=== PATIENT | male | born 1970 | race African-American/Black ===

== ENCOUNTER 2021-05-17 03:48 | Observation (INO) | payer OTHER ==
[2021-05-17 04:27] LABS: Basophils # (A) 0.1 k/uL (0-0.2); Basophils % (A) 1 %; Eosinophils # (A) 0.6 k/uL (0-0.7); Eosinophils % (A) 9 %; HCT 41.6 % (39.0-53.0); Lymphocytes # (A) 1.8 k/uL (1.0-4.8); Lymphocytes % (A) 26 %; MCH 28.2 pg (25.0-35.0); MCHC 31.4 g/dL (31.0-37.0); MCV 89.9 fL (80.0-100.0); Mean Platelet Volume 6.9; Monocytes # (A) 0.5 k/uL (0-1.0); Monocytes % (A) 8 %; Neutrophils # (A) 3.9 k/uL (1.3-7.7); Neutrophils % (A) 55 %; Platelet Count 232 k/uL (150-450); RBC 4.63 m/uL (4.30-5.90); RDW 13.2 % (11.5-15.5); WBC 7.1 k/uL (3.8-10.6)
--- NOTE | 2021-05-17 04:33 | ED ---
Chest Pain HPI - General Chief Complaint: Chest Pain Stated Complaint: Chest pain Time Seen by Provider: 05/17/21 03:50 Source: patient, EMS, RN notes reviewed, old records reviewed Mode of arrival: EMS Limitations: no limitations - History of Present Illness Initial Comments: This is a 50-year-old male presents today for evaluation. Patient comes in for evaluation of significant chest pain. Patient has no prior history of similar chest pain of this magnitude. Patient states he has history of high blood pressure and diabetes. He has had a stress test before regarding 5 years ago. Patient is coming from [facility] for alcohol rehab. Patient states pain started tonight has been progressively worsening. No diaphoresis and no current shortness of breath. No recent cough congestion or travel history MD Complaint: chest pain -: hour(s) Onset: during rest Pain Location: substernal, left chest Pain Radiation: LUE Severity: mild Severity scale (1-10): 3 Quality: heaviness Consistency: constant Improves With: nothing Worsens With: nothing Anginal Symptoms: dyspnea Other Symptoms: palpitations Treatments Prior to Arrival: none - Related Data Allergies Allergy/AdvReac Type Severity Reaction Status Date / Time No Known Allergies Allergy Verified 05/17/21 04:12 Review of Systems ROS Statement: Those systems with pertinent positive or pertinent negative responses have been documented in the HPI. ROS Other: All systems not noted in ROS Statement are negative. Past Medical History Past Medical History: Diabetes Mellitus History of Any Multi-Drug Resistant Organisms: None Reported Past Surgical History: No Surgical Hx Reported Past Psychological History: No Psychological Hx Reported Smoking Status: Former smoker Past Alcohol Use History: Abuse Past Drug Use History: Cocaine, Marijuana General Exam Limitations: no limitations General appearance: alert, in no apparent distress Head exam: Present: atraumatic, normocephalic, normal inspection Eye exam: Present: normal appearance, PERRL, EOMI. Absent: scleral icterus, conjunctival injection, periorbital swelling ENT exam: Present: normal exam, mucous membranes moist Neck exam: Present: normal inspection. Absent: tenderness, meningismus, lymphadenopathy Respiratory exam: Present: normal lung sounds bilaterally. Absent: respiratory distress, wheezes, rales, rhonchi, stridor Cardiovascular Exam: Present: regular rate, normal rhythm, normal heart sounds. Absent: systolic murmur, diastolic murmur, rubs, gallop, clicks GI/Abdominal exam: Present: soft, normal bowel sounds. Absent: distended, tenderness, guarding, rebound, rigid Extremities exam: Present: normal inspection, full ROM, normal capillary refill. Absent: tenderness, pedal edema, joint swelling, calf tenderness Back exam: Present: normal inspection Neurological exam: Present: alert, oriented X3, CN II-XII intact Psychiatric exam: Present: normal affect, normal mood Skin exam: Present: warm, dry, intact, normal color. Absent: rash Course Vital Signs 05/17/21 03:52 Temperature 97.4 F L Pulse Rate 84 Respiratory 18 Rate Blood Pressure 107/79 O2 Sat by Pulse 99 Oximetry - Reevaluation(s) Reevaluation #1: 05/17/21 04:42 Medical record is reviewed Reevaluation #2: 05/17/21 04:42 Patient has persistent chest pain here in the ER Reevaluation #3: 05/17/21 04:42 Patient informed results and questions answered - Consultations Consultation #1: Spoke with Dr. Dang who agrees to admit this patient Chest Pain MDM - MDM 50 male to the ER for evaluation patient presents today for evaluation regards to chest pain. Does have significant cardiac risk and will be admitted for cardiac observation Critical Care Time Critical Care Time: Yes Total Critical Care Time: 31 Disposition Clinical Impression: Chest pain Disposition: ADMITTED IP TO THIS [facility] Condition: Undetermined Instructions (If sedation given, give patient instructions): Chest Pain (ED) Is patient prescribed a controlled substance at d/c from ED?: No Referrals: Nonstaff,Physician [Primary Care Provider] - 1-2 days
[2021-05-17 04:35] LABS: Partial Thromboplastin Time 27.4 sec (22.0-30.0); Prothrombin Time 10.4 sec (9.0-12.0)
--- NOTE | 2021-05-17 04:37 | XR ---
EXAMINATION TYPE: XR chest 2V DATE OF EXAM: 05/17/2021 COMPARISON: NONE HISTORY: Wrist pain TECHNIQUE: 2 views FINDINGS: Heart and mediastinum are normal. Lungs are clear. Diaphragm is normal. Bony thorax appears normal. There are chest leads. IMPRESSION: Normal chest.
[2021-05-17] MEDS ORDERED: HEPARIN SODIUM 1,000 UN/ML (10ML VL) IV ONE (04:40)
[2021-05-17] MEDS ORDERED: NITROGLYCERIN SL TABS 0.4 MG TAB SUBLINGUAL PRN (04:40)
[2021-05-17] MEDS ORDERED: ASPIRIN 81 MG PO STA (04:40)
[2021-05-17] MEDS ORDERED: MORPHINE SULFATE 4 MG/ML SYRINGE IV PRN (04:40)
[2021-05-17] MEDS ORDERED: HEPARIN SOD,PORK IN 0.45% NACL 25,000 UNIT in 0.45% NACL 1 250ML.BAG IV SCH (04:45)
[2021-05-17 04:46] LABS: ALT 19 U/L (4-49); AST 25 U/L (17-59); African American GFR (CKD) >90 (>60 ml/min/1.73 sqM); Albumin 3.7 g/dL (3.5-5.0); Alkaline Phosphatase 92 U/L (38-126); Anion Gap 4 mmol/L; Blood Urea Nitrogen 11 mg/dL (9-20); Calcium 9.5 mg/dL (8.4-10.2); Carbon Dioxide 29 mmol/L (22-30); Chloride 103 mmol/L (98-107); Creatine Kinase 121 U/L (55-170); Glucose 111 mg/dL (74-99); Lipase 41 U/L (23-300); Magnesium 1.9 mg/dL (1.6-2.3); Non-African American GFR(CKD) >90 (>60 ml/min/1.73 sqM); Potassium 4.1 mmol/L (3.5-5.1); Sodium 136 mmol/L (137-145); Total Bilirubin <0.1 mg/dL (0.2-1.3)
[2021-05-17 04:58] LABS: Creatine Kinase MB 1.4 ng/mL (0.0-2.4); Troponin I <0.012 ng/mL (0.000-0.034)
[2021-05-17 06:04] LABS: Glucose,Whole Blood 41 mg/dL (75-99)
[2021-05-17] MEDS ORDERED: ATORVASTATIN 80 MG TAB PO SCH (09:00)
[2021-05-17 09:48] LABS: Glucose,Whole Blood 210 mg/dL (75-99)
--- NOTE | 2021-05-17 09:50 | P.CRDCN ---
History of Present Illness History of present illness: HISTORY OF PRESENTING ILLNESS This is a pleasant 50-year-old -[place] male past medical history significant for poorly controlled diabetes mellitus according to the patient hemoglobin A1c of 12, history of alcohol and illicit drug use has been clean for 3 weeks currently attending rehabilitation at [facility]. He is scheduled to follow-up with a bowling ball grader and marker for the first time next month but has yet to see him. He denies prior history of coronary artery disease and has no significant family history of premature coronary artery disease. We have been asked to see in consultation for chest pain. He states he woke up around 4 AM this morning with a sharp pain in the left precordial region that was radiating around his left anterior chest and into the left shoulder and back of his left arm. The pain was sharp in nature and lasted for about 10 minutes prior to calling EMS. Upon arrival they gave sublingual nitroglycerin which did relieve his discomfort. He had some associated shortness of breath and felt mildly lightheaded. Currently he is sitting up in bed in no acute distress and has had no further symptoms of chest discomfort since arriving in the emergency department. He states the reason his primary care doctor referred him to a bowling ball grader and marker as he has been having these symptoms of chest discomfort more frequently over the previous few months. DIAGNOSTICS EKG reveals sinus mechanism heart rate of [address] or T wave abno rmalities noted. Chest xray negative for an acute cardiopulmonary process. Laboratory reviewed, ABC unremarkable, sodium 136, potassium 4.1, creatinine 0.63, magnesium 1.9, troponin negative 1 and NT proBNP 18. Current cardiac medications include aspirin 81 mg daily and simvastatin 20 mg daily. REVIEW OF SYSTEMS At the time of my exam: CONSTITUTIONAL: Denies fever or chills. CARDIOVASCULAR: Denies chest pain, shortness of breath, orthopnea, PND or palpitations. RESPIRATORY: Denies cough. GASTROINTESTINAL: Denies abdominal pain, diarrhea, constipation, nausea or vomiting. MUSCULOSKELETAL: Denies myalgias. NEUROLOGIC: Denies numbness, tingling, headacbe or weakness. ENDOCRINE: Denies fatigue, weight change, polydipsia or polyurina. GENITOURINARY: Denies burning, hematuria or urgency with micturation. HEMATOLOGIC: Denies history of anemia or bleeding. PHYSICAL EXAMINATION Blood pressure 104/72 heart rate 84 afebrile and maintaining oxygen saturation on room air. CONSTITUTIONAL: No apparent distress. HEENT: Head is normocephalic. Pupils are equal, round. Sclerae anicteric. Mucous membranes of the mouth are moist. No JVD. No carotid bruit. CHEST EXAMINATION: Lungs are clear to auscultation. No chest wall tenderness is noted on palpation or with deep breathing. HEART EXAMINATION: Regular rate and rhythm. S1, S2 heard. No murmurs, gallops or rub. ABDOMEN: Soft, nontender. Positive bowel sounds. EXTREMITIES: 2+ peripheral pulses, no lower extremity edema and no calf tendern ess. NEUROLOGIC EXAMINATION: Patient is awake, alert and oriented x3. ASSESSMENT Chest pain Diabetes mellitus Dyslipidemia History of alcohol, illicit drug and tobacco dependence PLAN Continue to obtain serial cardiac enzymes to rule out an acute event. If second set of troponins is negative we will proceed with a stress echocardiogram to assess for stress-induced cardiac ischemia. Obtain 2-D echocardiogram and Doppler study to assess cardiac structure and function. Check lipid panel. Adjust statin accordingly. Thank you kindly for this consultation. Nurse Practitioner note has been reviewed, I agree with a documented findings and plan of care. Patient was seen and examined. Past Medical History Past Medical History: Diabetes Mellitus History of Any Multi-Drug Resistant Organisms: None Reported Past Surgical History: No Surgical Hx Reported Past Psychological History: No Psychological Hx Reported Smoking Status: Former smoker Past Alcohol Use History: Abuse Past Drug Use History: Cocaine, Marijuana Medications and Allergies Home Medications Medication Instructions Recorded Confirmed Type Aspirin 81 mg PO DAILY 05/17/21 05/17/21 History Cymbalta (Unknown Dose) 1 cap PO DAILY 05/17/21 05/17/21 History INSULIN LISPRO (HumaLOG) [humaLOG] See Protocol SQ ACHS 05/17/21 05/17/21 History Insulin Glargine,Hum.rec.anlog 30 unit SQ DAILY 05/17/21 05/17/21 History [Lantus Solostar] Insulin Glargine,Hum.rec.anlog 40 unit SQ HS 05/17/21 05/17/21 History [Lantus Solostar] Simvastatin [Zocor] 20 mg PO HS 05/17/21 05/17/21 History metFORMIN HCL [Glucophage] 1,000 mg PO BID 05/17/21 05/17/21 History Allergies Allergy/AdvReac Type Severity Reaction Status Date / Time No Known Allergies Allergy Verified 05/17/21 06:22 Physical Exam Vitals: Vital Signs Temp Pulse Resp BP Pulse Ox 05/17/21 05:47 84 17 104/72 99 05/17/21 04:43 79 17 110/77 100 05/17/21 03:52 97.4 F L 84 18 107/79 99 Intake and Output 05/16/21 05/17/21 05/17/21 22:59 06:59 14:59 Other: Weight 68.946 kg Results 05/17/21 04:13 05/17/21 04:13 Cardiac Enzymes 05/17/21 05/17/21 Range/Units 04:13 04:13 AST 25 (17-59) U/L CK-MB (CK-2) 1.4 (0.0-2.4) ng/mL Troponin I <0.012 (0.000-0.034) ng/mL Coagulation 05/17/21 Range/Units 04:13 PT 10.4 (9.0-12.0) sec APTT 27.4 (22.0-30.0) sec CBC 05/17/21 Range/Units 04:13 WBC 7.1 (3.8-10.6) k/uL RBC 4.63 (4.30-5.90) m/uL Hgb 13.0 (13.0-17.5) gm/dL Hct 41.6 (39.0-53.0) % Plt Count 232 (150-450) k/uL Comprehensive Metabolic Panel 05/17/21 Range/Units 04:13 Sodium 136 L (137-145) mmol/L Potassium 4.1 (3.5-5.1) mmol/L Chloride 103 (98-107) mmol/L Carbon Dioxide 29 (22-30) mmol/L BUN 11 (9-20) mg/dL Creatinine 0.63 L (0.66-1.25) mg/dL Glucose 111 H (74-99) mg/dL Calcium 9.5 (8.4-10.2) mg/dL AST 25 (17-59) U/L ALT 19 (4-49) U/L Alkaline Phosphatase 92 (38-126) U/L Total Protein 6.0 L (6.3-8.2) g/dL Albumin 3.7 (3.5-5.0) g/dL Current Medications Generic Name Dose Route Start Last Admin Trade Name Manuelq PRN Reason Stop Dose Admin Aspirin 325 mg 05/18/21 09:00 Aspirin 325 Mg Tab PO DAILY [facility] Atorvastatin Calcium 80 mg 05/17/21 09:00 Atorvastatin 80 Mg Tab PO DAILY [facility] Sodium Chloride 1,000 mls @ 100 mls/hr 05/17/21 04:45 Saline 0.9% IV .Q10H [facility] Heparin Sodium/Sodium Chloride 250 mls @ 8.274 mls/hr 05/17/21 04:45 05/17/21 05:00 25,000 unit/ Sodium Chloride IV 12 units/kg/hr .Q24H RENA 8.274 mls/hr Administration Protocol 12 UNITS/KG/HR Morphine Sulfate 4 mg 05/17/21 04:40 Morphine Sulfate 4 Mg/Ml Syringe IV Q4HR PRN Chest Pain Nitroglycerin 0.4 mg 05/17/21 04:40 Nitroglycerin Sl Tabs 0.4 Mg Tab SUBLINGUAL Q5M PRN Chest Pain Intake and Output 05/16/21 05/17/21 05/17/21 22:59 06:59 14:59 Other: Weight 68.946 kg 05/17/21 04:13 05/17/21 04:13
[2021-05-17 10:45] VITALS: RESP 18
[2021-05-17 11:58] LABS: Glucose,Whole Blood 226 mg/dL (75-99)
[2021-05-17] MEDS: SODIUM CHLORIDE 0.9% 1,000 ML IV SCH ×2 (12:20→16:57)
--- NOTE | 2021-05-17 12:48 | ECHOF ---
Referral Reason:cp MEASUREMENTS -------- HEIGHT: 177.8 cm WEIGHT: 68.9 kg BP: RVIDd: 2.6 cm (< 3.3) IVSd: 1.1 cm (0.6 - 1.1) LVIDd: 3.6 cm (3.9 - 5.3) LVPWd: 1.0 cm (0.6 - 1.1) IVSs: 1.6 cm LVIDs: 2.3 cm LVPWs: 1.7 cm LAESV Index (A-L): 13.53 ml/m Ao Diam: 3.0 cm (2.0 - 3.7) AV Cusp: 2.0 cm (1.5 - 2.6) LA Diam: 2.7 cm (2.7 - 3.8) MV EXCURSION: 18.221 mm (> 18.000) MV EF SLOPE: 169 mm/s (70 - 150) EPSS: 0.4 cm MV E True: 0.72 m/s MV DecT: 149 ms MV A True: 0.94 m/s MV E/A Ratio: 0.77 RAP: 5.00 mmHg RVSP: 16.30 mmHg FINDINGS -------- This was a technically good study. The left ventricular size is normal. Left ventricular wall thickness is normal. Overall left vent ricular systolic function is normal with, an EF between 55 - 60 %. The diastolic filling pattern is normal for the age of the patient 8.66. The right ventricle is normal in size. The left atrial size is normal. Normal LA size by volume 22+/-6 ml/m2. The right atrial size is normal. Aortic valve is trileaflet and is mildly thickened. The mitral valve is normal. The mitral valve leaflets are mildly thickened. There is trace mitral regurgitation. The tricuspid valve appears structurally normal. Trace tricuspid regurgitation present. Right nikki tricular systolic pressure is normal at < 35 mmHg. There is no pulmonic regurgitation present. The aortic root size is normal. Normal inferior vena cava with normal inspiratory collapse consistent with estimated right atrial pre ssure of 5 mmHg. There is no pericardial effusion. CONCLUSIONS -------- 1. The left ventricular size is normal. 2. Left ventricular wall thickness is normal. 3. Overall left ventricular systolic function is normal with, an EF between 55 - 60 %. 4. The diastolic filling pattern is normal for the age of the patient 8.66 5. Aortic valve is trileaflet and is mildly thickened. 6. The mitral valve leaflets are mildly thickened. 7. There is trace mitral regurgitation. 8. Trace tricuspid regurgitation present. 9. There is no pericardial effusion. [employer]EN'[employer] GOLF COACH: Ernestina Rubin RDCS
[2021-05-17] MEDS ORDERED: HYDROcodone/APAP 5-325MG 1 EACH TAB PO PRN (13:31)
--- NOTE | 2021-05-17 14:27 | ECHOS ---
STRESS ECHOCARDIOGRAM LUMASON: Vial INDICATIONS: Chest pain. MEDICATIONS: BASELINE HEART RATE: 83 BASELINE BLOOD PRESSURE: 120/62 MAXIMUM HEART RATE: 152 MAXIMUM BLOOD PRESSURE: 171/82 85% MPHR: 144 100% MPHR: 169 METS: 11.1 MAXIMUM STAGE REACHED: 3 TOTAL EXERCISE TIME: 9:31 CLINICAL INFORMATION: Baseline EKG shows sinus rhythm, normal axis, normal intervals. Patient exercised on Jose Francisco protocol for a total of 9.5 minutes achieving 11 METS, 90% of predicted maximal heart rate without chest pain or diagnostic ST-segment depression. Baseline echo shows normal left ventricular size, wall motion and systolic function. Postexercise there is normal hyperdynamic response of all segments of myocardium noted. CONCLUSIONS: 1. Good exercise tolerance. 2. Negative stress test by EKG criteria. 3. Negative stress echo. MMODL / IJN: [id number] /
[2021-05-17 15:32] VITALS: BP 130/82; PULSE 93; TEMP 98.2
[2021-05-17 17:51] LABS: Glucose,Whole Blood 164 mg/dL (75-99)
--- NOTE | 2021-05-17 18:13 | HP ---
HISTORY AND PHYSICAL A 50-year-old white male for poorly controlled diabetes mellitus with a hemoglobin A1c of 12. Alcohol and illicit drug use for the past 3 weeks. Came in from [place] with dyslipidemia, scheduled to see a recreation establishment manager but has not seen one yet. He came in with sharp pain is left precordial region. He is admitted to rule out myocardial infarction and cardiology consult. EKG shows sinus rhythm, no ST-T changes. Chest x-ray is negative. BNP is 18. Troponin is negative. Sodium is 136, potassium 4.1. REVIEW OF SYSTEMS: Fourteen-point review of systems otherwise negative. PHYSICAL EXAMINATION: VITAL SIGNS: Blood pressure is 104/72, heart rate 70s-80s. Maintaining oxygen on room air. CONSTITUTIONAL: No acute distress. HEENT: Normocephalic, atraumatic. LUNGS: Clear. HEART: S1, S2. ABDOMEN: Soft. EXTREMITIES: No cyanosis, clubbing, edema. NEUROLOGIC: Alert and orient x3. ASSESSMENT: 1. Atypical chest pain. 2. Diabetes mellitus, uncontrolled. 3. Dyslipidemia. 4. History of alcohol and drug abuse. Cardiac enzymes to rule out a myocardial infarction. Stress echo to rule out ischemia. Start him on a statin. Possible discharge home once he is cleared from Cardiology standpoint. Check D-dimer. MMODL / IJN: [id number] /
[2021-05-17] MEDS ORDERED: INSULIN DETEMIR (LEVEMIR) 100 UNIT/ML SYR SQ SCH (21:00)
[2021-05-17] MEDS ORDERED: ATORVASTATIN 10 MG TAB PO SCH (21:00)
[2021-05-18 01:17] LABS: Chol/HDL Ratio 1.89
[2021-05-18] MEDS ORDERED: ASPIRIN 325 MG TAB PO SCH (09:00)
[2021-05-18] MEDS ORDERED: ASPIRIN 81 MG PO SCH ×2 (09:00)
[2021-05-18] MEDS ORDERED: INSULIN DETEMIR (LEVEMIR) 100 UNIT/ML SYR SQ SCH (09:00)
[2021-05-18] MEDS ORDERED: DULoxetine HCL 60 MG CAPSULE.DR PO SCH (09:00)
== END 2021-05-17 18:48 | disposition home or self-care (01) ==
LOC: EC 03:48 → 6NMEDSUR 04:40
PROVIDERS: ADMIT Family Medicine; ATTEND Family Medicine
DX: R07.89 Other chest pain (principal); E11.65 Type 2 diabetes mellitus with hyperglycemia; R00.2 Palpitations; R06.02 Shortness of breath; R42 Dizziness and giddiness; E78.5 Hyperlipidemia, unspecified; F10.10 Alcohol abuse, uncomplicated; F19.10 Other psychoactive substance abuse, uncomplicated; Z79.82 Long term (current) use of aspirin; Z79.4 Long term (current) use of insulin; Z87.891 Personal history of nicotine dependence; Z86.79 Personal history of other diseases of the circulatory system
CPT/HCPCS: 96374; 99291; 36415; 93005; 93306; 93351; 83880; 80061; 80053; 82550; 82553; 83690; 83735; 84484; 85025; 85610; 85730; 71046; G0378; J1644 ×2

== ENCOUNTER 2022-06-04 09:49 | Observation (INO) | payer OTHER ==
[2022-06-04 10:10] LABS: Glucose,Whole Blood 328 mg/dL (70-110)
[2022-06-04] MEDS ORDERED: SODIUM CHLORIDE 0.9% 1,000 ML IV STA (10:18)
--- NOTE | 2022-06-04 10:19 | ED ---
General Adult HPI - General Chief complaint: Chest Pain Stated complaint: chest pain Time Seen by Provider: 06/04/22 09:55 Source: EMS Mode of arrival: EMS Limitations: no limitations - History of Present Illness Initial comments: 51-year-old male with past medical history of diabetes, cocaine use presents to the emergency room from [place]. States that he last used on Friday and was admitted to [place] yesterday. Began having chest pain earlier this morning. Described as substernal without radiation. Patient sent to the emergency departments and was given aspirin and nitro by EMS. Reports that his pain which was 8 out of 10 and is now completely gone after the nitro. He denies previous history of cardiac disease. No fevers, chills or cough. No shortness of breath. Patient is a diabetic. He did take his long-acting insulin this morning but did not accommodate for his meal. Glucose for EMS was 491 No alleviating, precipitating or modifying factors - Related Data Home Medications Medication Instructions Recorded Confirmed Aspirin 81 mg PO DAILY 05/17/21 06/04/22 INSULIN LISPRO (HumaLOG) [humaLOG] 8 units SQ AC-TID 05/17/21 06/04/22 Insulin Glargine,Hum.rec.anlog 30 unit SQ DAILY 05/17/21 06/04/22 [Lantus Solostar Pen] Insulin Glargine,Hum.rec.anlog 40 unit SQ HS 05/17/21 06/04/22 [Lantus Solostar Pen] ALPRAZolam [Xanax] 0.5 mg PO TID 06/04/22 06/04/22 ARIPiprazole [Abilify] 15 mg PO DAILY 06/04/22 06/04/22 Ammonium Lactate Cream [Lac-Hydrin 1 applic TOPICAL DAILY 06/04/22 06/04/22 12% Cream] Citalopram Hydrobromide [CeleXA] 10 mg PO DAILY 06/04/22 06/04/22 Empagliflozin [Jardiance] 10 mg PO DAILY 06/04/22 06/04/22 Gabapentin 600 mg PO TID 06/04/22 06/04/22 HYDROcodone/APAP 7.5-325MG [[place] 1 tab PO DAILY 06/04/22 06/04/22 7.5-325] Isosorbide Mononitrate ER [Imdur] 30 mg PO DAILY 06/04/22 06/04/22 Lidocaine 4% Patch 1 patch TOPICAL DAILY 06/04/22 06/04/22 amLODIPine [Norvasc] 10 mg PO DAILY 06/04/22 06/04/22 sitaGLIPtin [Januvia] 50 mg PO DAILY 06/04/22 06/04/22 traZODone HCL 300 mg PO HS 06/04/22 06/04/22 Allergies Allergy/AdvReac Type Severity Reaction Status Date / Time No Known Allergies Allergy Verified 06/04/22 11:19 Review of Systems ROS Statement: Those systems with pertinent positive or pertinent negative responses have been documented in the HPI. ROS Other: All systems not noted in ROS Statement are negative. Past Medical History Past Medical History: Diabetes Mellitus History of Any Multi-Drug Resistant Organisms: None Reported Past Surgical History: No Surgical Hx Reported Past Psychological History: No Psychological Hx Reported Smoking Status: Current every day smoker Past Alcohol Use History: Abuse Past Drug Use History: Cocaine, Marijuana General Exam Limitations: no limitations General appearance: alert, in no apparent distress Head exam: Present: atraumatic, normocephalic, normal inspection Eye exam: Present: normal appearance, PERRL, EOMI. Absent: scleral icterus, conjunctival injection, periorbital swelling ENT exam: Present: normal exam, mucous membranes moist Neck exam: Present: normal inspection. Absent: tenderness, meningismus, lymphadenopathy Respiratory exam: Present: normal lung sounds bilaterally. Absent: respiratory distress, wheezes, rales, rhonchi, stridor Cardiovascular Exam: Present: regular rate, normal rhythm, normal heart sounds. Absent: systolic murmur, diastolic murmur, rubs, gallop, clicks GI/Abdominal exam: Present: soft, normal bowel sounds. Absent: distended, tenderness, guarding, rebound, rigid Extremities exam: Present: normal inspection, full ROM, normal capillary refill. Absent: tenderness, pedal edema, joint swelling, calf tenderness Back exam: Present: normal inspection Neurological exam: Present: alert, oriented X3, CN II-XII intact Psychiatric exam: Present: normal affect, normal mood Skin exam: Present: warm, dry, intact, normal color. Absent: rash Course Vital Signs 06/04/22 06/04/22 06/04/22 09:52 13:19 15:00 Temperature 98 F 98 F Pulse Rate 73 80 Pulse Rate [ 77 Pulse Oximetery ] Respiratory 16 16 16 Rate Blood Pressure 131/75 130/68 Blood Pressure 135/68 [Right Arm] O2 Sat by Pulse 100 98 98 Oximetry EKG Findings - EKG Comments: EKG Findings:: EKG demonstrates sinus rhythm with a rate of 74. VT interval 154. QRS 100. QTC 46. No acute ST segment elevations or depressions. Inverted T- wave in aVL Medical Decision Making - Medical Decision Making Upon arrival patient was placed into room 14. Thorough history and physical exam was performed. 12-lead EKG is obtained which demonstrates J-point elevation. Patient is pain-free at this time. Labs conducted which demonstrate sugar of 333. Troponin is negative. Chest x-ray demonstrated no acute process. Recommended admission in order trend his troponins which the patient did agree to. Spoke with Dr. Palafox who will admit the patient - Lab Data Result diagrams: 06/05/22 03:58 06/05/22 03:58 Lab Results 06/04/22 06/04/22 06/04/22 Range/Units 10:04 10:21 10:21 WBC 4.6 (3.8-10.6) k/uL RBC 4.75 (4.30-5.90) m/uL Hgb 13.0 (13.0-17.5) gm/dL Hct 41.9 (39.0-53.0) % MCV 88.3 (80.0-100.0) fL MCH 27.4 (25.0-35.0) pg MCHC 31.1 (31.0-37.0) g/dL RDW 13.3 (11.5-15.5) % Plt Count 179 (150-450) k/uL MPV 7.7 Neutrophils % 56 % Lymphocytes % 19 % Monocytes % 10 % Eosinophils % 12 % Basophils % 1 % Neutrophils # 2.6 (1.3-7.7) k/uL Lymphocytes # 0.9 L (1.0-4.8) k/uL Monocytes # 0.4 (0-1.0) k/uL Eosinophils # 0.5 (0-0.7) k/uL Basophils # 0.0 (0-0.2) k/uL PT 10.3 (9.0-12.0) sec INR 0.9 (<1.2) APTT 27.5 (22.0-30.0) sec Sodium (137-145) mmol/L Potassium (3.5-5.1) mmol/L Chloride (98-107) mmol/L Carbon Dioxide (22-30) mmol/L Anion Gap mmol/L BUN (9-20) mg/dL Creatinine (0.66-1.25) mg/dL Est GFR (CKD-EPI)AfAm (>60 ml/min/1.73 sqM) Est GFR (CKD-EPI)NonAf (>60 ml/min/1.73 sqM) Glucose (74-99) mg/dL POC Glucose (mg/dL) 328 H (70-110) mg/dL POC Glu Environmental Law Professor ID Alej[address] Glu mg/dL Hemoglobin A1c (0.0-6.0) % Calcium (8.4-10.2) mg/dL Magnesium (1.6-2.3) mg/dL Total Bilirubin (0.2-1.3) mg/dL AST (17-59) U/L ALT (4-49) U/L Alkaline Phosphatase (38-126) U/L Troponin I (0.000-0.034) ng/mL Total Protein (6.3-8.2) g/dL Albumin (3.5-5.0) g/dL Lipase (23-300) U/L Urine Color Urine Appearance (Clear) Urine pH (5.0-8.0) Ur Specific [place] (1.001-1.035) Urine Protein (Negative) Urine Glucose (UA) (Negative) Urine Ketones (Negative) Urine Blood (Negative) Urine Nitrite (Negative) Urine Bilirubin (Negative) Urine Urobilinogen (<2.0) mg/dL Ur Leukocyte Esterase (Negative) 06/04/22 06/04/22 06/04/22 Range/Units 10:21 10:21 10:21 WBC (3.8-10.6) k/uL RBC (4.30-5.90) m/uL Hgb (13.0-17.5) gm/dL Hct (39.0-53.0) % MCV (80.0-100.0) fL MCH (25.0-35.0) pg MCHC (31.0-37.0) g/dL RDW (11.5-15.5) % Plt Count (150-450) k/uL MPV Neutrophils % % Lymphocytes % % Monocytes % % Eosinophils % % Basophils % % Neutrophils # (1.3-7.7) k/uL Lymphocytes # (1.0-4.8) k/uL Monocytes # (0-1.0) k/uL Eosinophils # (0-0.7) k/uL Basophils # (0-0.2) k/uL PT (9.0-12.0) sec INR (<1.2) APTT (22.0-30.0) sec Sodium 134 L (137-145) mmol/L Potassium 4.7 (3.5-5.1) mmol/L Chloride 101 (98-107) mmol/L Carbon Dioxide 27 (22-30) mmol/L Anion Gap 6 mmol/L BUN 13 (9-20) mg/dL Creatinine 0.76 (0.66-1.25) mg/dL Est GFR (CKD-EPI)AfAm >90 (>60 ml/min/1.73 sqM) Est GFR (CKD-EPI)NonAf >90 (>60 ml/min/1.73 sqM) Glucose 333 H (74-99) mg/dL POC Glucose (mg/dL) (70-110) mg/dL POC Glu Environmental Law Professor ID [address] Glu mg/dL Hemoglobin A1c (0.0-6.0) % Calcium 8.7 (8.4-10.2) mg/dL Magnesium 2.0 (1.6-2.3) mg/dL Total Bilirubin 0.1 L (0.2-1.3) mg/dL AST 28 (17-59) U/L ALT 26 (4-49) U/L Alkaline Phosphatase 138 H (38-126) U/L Troponin I <0.012 (0.000-0.034) ng/mL Total Protein 5.8 L (6.3-8.2) g/dL Albumin 3.5 (3.5-5.0) g/dL Lipase 124 (23-300) U/L Urine Color Light Yellow Urine Appearance Clear (Clear) Urine pH 6.5 (5.0-8.0) Ur Specific [place] 1.030 (1.001-1.035) Urine Protein Negative (Negative) Urine Glucose (UA) 4+ H (Negative) Urine Ketones Negative (Negative) Urine Blood Negative (Negative) Urine Nitrite Negative (Negative) Urine Bilirubin Negative (Negative) Urine Urobilinogen <2.0 (<2.0) mg/dL Ur Leukocyte Esterase Negative (Negative) 06/04/22 Range/Units 10:21 WBC (3.8-10.6) k/uL RBC (4.30-5.90) m/uL Hgb (13.0-17.5) gm/dL Hct (39.0-53.0) % MCV (80.0-100.0) fL MCH (25.0-35.0) pg MCHC (31.0-37.0) g/dL RDW (11.5-15.5) % Plt Count (150-450) k/uL MPV Neutrophils % % Lymphocytes % % Monocytes % % Eosinophils % % Basophils % % Neutrophils # (1.3-7.7) k/uL Lymphocytes # (1.0-4.8) k/uL Monocytes # (0-1.0) k/uL Eosinophils # (0-0.7) k/uL Basophils # (0-0.2) k/uL PT (9.0-12.0) sec INR (<1.2) APTT (22.0-30.0) sec Sodium (137-145) mmol/L Potassium (3.5-5.1) mmol/L Chloride (98-107) mmol/L Carbon Dioxide (22-30) mmol/L Anion Gap mmol/L BUN (9-20) mg/dL Creatinine (0.66-1.25) mg/dL Est GFR (CKD-EPI)AfAm (>60 ml/min/1.73 sqM) Est GFR (CKD-EPI)NonAf (>60 ml/min/1.73 sqM) Glucose (74-99) mg/dL POC Glucose (mg/dL) (70-110) mg/dL POC Glu Environmental Law Professor ID [address] Glu mg/dL 214 Hemoglobin A1c 9.1 H (0.0-6.0) % Calcium (8.4-10.2) mg/dL Magnesium (1.6-2.3) mg/dL Total Bilirubin (0.2-1.3) mg/dL AST (17-59) U/L ALT (4-49) U/L Alkaline Phosphatase (38-126) U/L Troponin I (0.000-0.034) ng/mL Total Protein (6.3-8.2) g/dL Albumin (3.5-5.0) g/dL Lipase (23-300) U/L Urine Color Urine Appearance (Clear) Urine pH (5.0-8.0) Ur Specific [place] (1.001-1.035) Urine Protein (Negative) Urine Glucose (UA) (Negative) Urine Ketones (Negative) Urine Blood (Negative) Urine Nitrite (Negative) Urine Bilirubin (Negative) Urine Urobilinogen (<2.0) mg/dL Ur Leukocyte Esterase (Negative) Disposition Clinical Impression: Chest pain, Cocaine abuse Disposition: ADMITTED IP TO THIS [facility] Condition: Stable Is patient prescribed a controlled substance at d/c from ED?: No Time of Disposition: 11:37 Decision to Admit Reason: Admit from EC Decision Date: 06/04/22 Decision Time: 11:37
[2022-06-04 10:40] LABS: Basophils % (A) 1 %; Eosinophils # (A) 0.5 k/uL (0-0.7); Eosinophils % (A) 12 %; HCT 41.9 % (39.0-53.0); Lymphocytes # (A) 0.9 k/uL (1.0-4.8); Lymphocytes % (A) 19 %; MCH 27.4 pg (25.0-35.0); MCHC 31.1 g/dL (31.0-37.0); MCV 88.3 fL (80.0-100.0); Mean Platelet Volume 7.7; Monocytes # (A) 0.4 k/uL (0-1.0); Monocytes % (A) 10 %; Neutrophils # (A) 2.6 k/uL (1.3-7.7); Neutrophils % (A) 56 %; Platelet Count 179 k/uL (150-450); RBC 4.75 m/uL (4.30-5.90); RDW 13.3 % (11.5-15.5); WBC 4.6 k/uL (3.8-10.6)
[2022-06-04 10:41] LABS: Appearance,Urine Clear (Clear); Bilirubin,Urine Negative (Negative); Blood,Urine Negative (Negative); Color,Urine Light Yellow; Glucose,Urine (UA) 4+ (Negative); Ketones,Urine Negative (Negative); Leukocyte Esterase,Urine Negative (Negative); Nitrite,Urine Negative (Negative); PH, Urine 6.5 (5.0-8.0); Protein,Urine Negative (Negative); Urobilinogen,Urine <2.0 mg/dL (<2.0)
--- NOTE | 2022-06-04 10:48 | XR ---
EXAMINATION TYPE: XR chest 2V DATE OF EXAM: 06/04/2022 COMPARISON: 05/17/21 HISTORY: Shortness of breath TECHNIQUE: Frontal and lateral views of the chest are obtained. FINDINGS: Scattered senescent parenchymal changes noted. Hyperinflation compatible with COPD. No evidence for infiltrate. No evidence for atelectasis. Heart size is stable. Mediastinal structures are stable and grossly unremarkable. No evidence for hilar prominence. Degenerative changes dorsal spine. IMPRESSION: 1. No evidence for acute pulmonary disease.
[2022-06-04 10:56] LABS: ALT 26 U/L (4-49); AST 28 U/L (17-59); African American GFR (CKD) >90 (>60 ml/min/1.73 sqM); Albumin 3.5 g/dL (3.5-5.0); Alkaline Phosphatase 138 U/L (38-126); Anion Gap 6 mmol/L; Blood Urea Nitrogen 13 mg/dL (9-20); Calcium 8.7 mg/dL (8.4-10.2); Carbon Dioxide 27 mmol/L (22-30); Chloride 101 mmol/L (98-107); Glucose 333 mg/dL (74-99); Lipase 124 U/L (23-300); Non-African American GFR(CKD) >90 (>60 ml/min/1.73 sqM); Potassium 4.7 mmol/L (3.5-5.1); Sodium 134 mmol/L (137-145); Total Bilirubin 0.1 mg/dL (0.2-1.3); Total Protein 5.8 g/dL (6.3-8.2)
[2022-06-04 11:00] LABS: INR 0.9 (<1.2); Partial Thromboplastin Time 27.5 sec (22.0-30.0); Prothrombin Time 10.3 sec (9.0-12.0)
[2022-06-04] MEDS ORDERED: NALOXONE 0.4 MG/ML 1 ML VIAL IV PRN (11:43)
[2022-06-04] MEDS: SODIUM CHLORIDE 0.9% 1,000 ML IV SCH ×2 (12:56→21:30)
--- NOTE | 2022-06-04 13:15 | P.CRDCN ---
History of Present Illness History of present illness: This is a pleasant 50-year-old -[place] male past medical history significant for cocaine abuse, chronic nicotine dependence, history of alcohol abuse, uncontrolled diabetes, hypertension and dyslipidemia. 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 We have been asked to see in consultation for chest pain. He presents to the emergency department with complaints of left sided chest pain. He states that he uses crack cocaine daily, he states he used crack cocaine and developed left sided chest discomfort on Friday. Today he went to [place] for rehab, he endorsed left sided chest pain, shortness of breath for a few seconds and dizziness, and some left shoulder pain. He states it is alleviated by movement/walking and palpating the left chest. No specific aggravating factors. It is non-exertional. His pain has resolved. He denies any lightheadedness, palpitations, syncope or near syncope. Patient denies any history of CAD, [place], stroke. He currently uses crack cocaine daily and smokes about 15 cigarrettes per day. He states he does not drink alcohol daily, states occasional. Denies any other illicit drug use. DIAGNOSTICS * EKG reveals sinus mechanism heart rate of 74, early repolarization noted in inferior leads. with no acute ST or T wave abnormalities noted. * EKG in the EMS was similar findings. Prior EKG in 04/2021 with similar findings * 04/2021 and stress echocardiogram test was negative for stress-induced ischemia * 04/2021 echocardiogram revealed EF 5560% * Chest xray negative for an acute cardiopulmonary process. * Laboratory reviewed, CBC unremarkable, troponin negative, sodium 134, potassium 4.7, BUN 13, serum creatinine 0.7, blood sugar 333 * Current cardiac medications include aspirin 81 mg daily and simvastatin 20 mg daily. REVIEW OF SYSTEMS At the time of my exam: Symptoms have resolved. CONSTITUTIONAL: Denies fever or chills. CARDIOVASCULAR: Denies chest pain, shortness of breath, orthopnea, PND or palpitations. RESPIRATORY: Denies cough. GASTROINTESTINAL: Denies abdominal pain, diarrhea, constipation, nausea or vomiting. MUSCULOSKELETAL: Denies myalgias. NEUROLOGIC: Denies numbness, tingling, headacbe or weakness. ENDOCRINE: Denies fatigue, weight change, polydipsia or polyurina. GENITOURINARY: Denies burning, hematuria or urgency with micturation. HEMATOLOGIC: Denies history of anemia or bleeding. PHYSICAL EXAMINATION Blood pressure 131/75, heart 73, afebrile, oxygen saturation 100% on room air CONSTITUTIONAL: No apparent distress. HEENT: Head is normocephalic. Pupils are equal, round. Sclerae anicteric. Mucous membranes of the mouth are moist. No JVD. No carotid bruit. CHEST EXAMINATION: Lungs are clear to auscultation. No chest wall tenderness is noted on palpation or with deep breathing. HEART EXAMINATION: Regular rate and rhythm. S1, S2 heard. No murmurs, gallops or rub. ABDOMEN: Soft, nontender. Positive bowel sounds. EXTREMITIES: 2+ peripheral pulses, no lower extremity edema and no calf tenderness. NEUROLOGIC EXAMINATION: Patient is awake, alert and oriented x3. ASSESSMENT Chest pain, atypical, occurred after cocaine use, also endorses relief with activity and palpating the left chest Hyperglycemia Diabetes mellitus Dyslipidemia History of alcohol abuse Illicit drug use Tobacco dependence PLAN Patient's chest discomfort does not appear to be cardiac in etiology possible musculoskeletal component Trend troponin, Repeat EKG Obtain 2D echocardiogram Further recommendations based on the above workup Nurse Practitioner note has been reviewed, I agree with a documented findings and plan of care. Patient was seen and examined. Past Medical History Past Medical History: Diabetes Mellitus History of Any Multi-Drug Resistant Organisms: None Reported Past Surgical History: No Surgical Hx Reported Past Psychological History: No Psychological Hx Reported Smoking Status: Current every day smoker Past Alcohol Use History: Abuse Past Drug Use History: Cocaine, Marijuana Medications and Allergies Home Medications Medication Instructions Recorded Confirmed Type Aspirin 81 mg PO DAILY 05/17/21 06/04/22 History INSULIN LISPRO (HumaLOG) [humaLOG] 8 units SQ AC-TID 05/17/21 06/04/22 History Insulin Glargine,Hum.rec.anlog 30 unit SQ DAILY 05/17/21 06/04/22 History [Lantus Solostar Pen] Insulin Glargine,Hum.rec.anlog 40 unit SQ HS 05/17/21 06/04/22 History [Lantus Solostar Pen] ALPRAZolam [Xanax] 0.5 mg PO TID 06/04/22 06/04/22 History ARIPiprazole [Abilify] 15 mg PO DAILY 06/04/22 06/04/22 History Ammonium Lactate Cream [Lac-Hydrin 1 applic TOPICAL DAILY 06/04/22 06/04/22 History 12% Cream] Citalopram Hydrobromide [CeleXA] 10 mg PO DAILY 06/04/22 06/04/22 History Empagliflozin [Jardiance] 10 mg PO DAILY 06/04/22 06/04/22 History Gabapentin 600 mg PO TID 06/04/22 06/04/22 History HYDROcodone/APAP 7.5-325MG [[place] 1 tab PO DAILY 06/04/22 06/04/22 History 7.5-325] Isosorbide Mononitrate ER [Imdur] 30 mg PO DAILY 06/04/22 06/04/22 History Lidocaine 4% Patch 1 patch TOPICAL DAILY 06/04/22 06/04/22 History amLODIPine [Norvasc] 10 mg PO DAILY 06/04/22 06/04/22 History sitaGLIPtin [Januvia] 50 mg PO DAILY 06/04/22 06/04/22 History traZODone HCL 300 mg PO HS 06/04/22 06/04/22 History Allergies Allergy/AdvReac Type Severity Reaction Status Date / Time No Known Allergies Allergy Verified 06/04/22 11:19 Physical Exam Vitals: Vital Signs Temp Pulse Resp BP Pulse Ox 06/04/22 09:52 98 F 73 16 131/75 100 Intake and Output 06/03/22 06/04/22 06/04/22 22:59 06:59 14:59 Other: Weight 69.853 kg Results 06/04/22 10:21 06/04/22 10:21 Cardiac Enzymes 06/04/22 06/04/22 Range/Units 10:21 10:21 AST 28 (17-59) U/L Troponin I <0.012 (0.000-0.034) ng/mL Coagulation 06/04/22 Range/Units 10:21 PT 10.3 (9.0-12.0) sec APTT 27.5 (22.0-30.0) sec CBC 06/04/22 Range/Units 10:21 WBC 4.6 (3.8-10.6) k/uL RBC 4.75 (4.30-5.90) m/uL Hgb 13.0 (13.0-17.5) gm/dL Hct 41.9 (39.0-53.0) % Plt Count 179 (150-450) k/uL Comprehensive Metabolic Panel 06/04/22 Range/Units 10:21 Sodium 134 L (137-145) mmol/L Potassium 4.7 (3.5-5.1) mmol/L Chloride 101 (98-107) mmol/L Carbon Dioxide 27 (22-30) mmol/L BUN 13 (9-20) mg/dL Creatinine 0.76 (0.66-1.25) mg/dL Glucose 333 H (74-99) mg/dL Calcium 8.7 (8.4-10.2) mg/dL AST 28 (17-59) U/L ALT 26 (4-49) U/L Alkaline Phosphatase 138 H (38-126) U/L Total Protein 5.8 L (6.3-8.2) g/dL Albumin 3.5 (3.5-5.0) g/dL Current Medications Generic Name Dose Route Start Last Admin Trade Name Freq PRN Reason Stop Dose Admin Sodium Chloride 1,000 mls @ 130 mls/hr 06/04/22 11:45 Saline 0.9% IV .[id number] [facility] Naloxone HCl 0.2 mg 06/04/22 11:43 Naloxone 0.4 Mg/Ml 1 Ml Vial IV Q2M PRN Opioid Reversal Intake and Output 06/03/22 06/04/22 06/04/22 22:59 06:59 14:59 Other: Weight 69.853 kg Patient Weight 06/05/22 06:59 Weight 69.853 kg 06/04/22 10:21 06/04/22 10:21
--- NOTE | 2022-06-04 14:27 | P.HPIM ---
History of Present Illness H&P Date: 06/04/22 History of Presenting Illness: Patient is a 51-year-old male with a past medical history of crack cocaine abuse, hypertension, hyperlipidemia, diabetes mellitus, anxiety, depression and nicotine dependence. Patient was sent to the emergency department for evaluation from [place]. Patient reports last smoking crack cocaine yesterday evening and awakening this morning with chest pain. Patient reports pain as a sharp pain to left anterior chest that waxes and wanes. Patient describes pain as sharp and denies any radiation of pain. Patient reports pain was improved after receiving nitroglycerin administered by EMS prior to arrival to the emergency department. Patient denies having any headache, lightheadedness, dizziness, palpitations, shortness of breath, dyspnea with exertion, nausea, vomiting, or experiencing any numbness/tingling/weakness/swelling in his extremities. Patient underwent full evaluation in the emergency department CBC, coags, and CMP showing no significant abnormalities with the exception of mild pseudohyponatremia, hyperglycemia with glucose of 333 and elevated alkaline phosphatase of 138. Troponin negative at less than 0.012. EKG showing normal sinus rhythm at 74 bpm. Chest x-ray negative for acute cardiopulmonary process. Patient admitted under our services with consultation to cardiology. Review of systems: Pertinent positives and negatives as discussed in HPI, a complete review of systems was performed and all other systems are negative. Physical exam: Vital signs reviewed and stable. General: Nontoxic, no distress and appears stated age. Derm: Skin warm and dry, normal coloration for ethnicity. Head: Atraumatic, normocephalic and symmetric. Eyes: EOMs intact, no lid lag, and anicteric sclera Mouth: no lip lesions, mucus membranes moist Cardiovascular: regular rate and rhythm with normal S1S2, systolic murmur, positive posterior tibial pulses bilaterally, and cap refill < 2 seconds. Lungs: Respirations even, regular, and unlabored on room air. Lungs CTA bilaterally, no rhonchi, no rales, no wheezing, and no accessory muscle usage. Abdominal: soft, nontender to palpation, no guarding, no appreciable organomegaly Ext: ROM intact. No gross muscle atrophy, no edema, no contractures Neuro: Speech clear, face symmetrical and CN II-XII grossly intact with no noted focal neuro deficits Psych: Alert and oriented to person, place, time, and situation. Appropriate and pleasant affect. Assessment and Plan of Care: Chest pain, rule out acute coronary event -Cardiology consult, appreciate further recommendations -Telemetry monitoring -Trend troponins -Cardiac diet, NPO at midnight -Aspirin, atorvastatin, and metoprolol -Lipid profile with a.m. labs. -Echocardiogram Crack cocaine abuse -Patient strongly encouraged to avoid any further use of cocaine or crack cocaine. Patient reports that he wants to return to [place] rehab upon discharge from hospital. Insulin-dependent diabetes mellitus with hyperglycemia, poorly controlled -Patient placed on glycemic protocol and to continue Humalog 8 units 3 times daily with meals and long-acting glargine 30 units daily and 40 units nightly. Hypertension -Monitor vital signs and continue daily medication regimen with amlodipine and isosorbide mononitrate The patient is admitted with an anticipated less than 2 midnight stay for evaluation of chest pain CODE STATUS: Full code DVT prophylaxis: heparin Discussed with: patient and RN Anticipated discharge date: tomorrow Anticipated discharge place: : Home A total of 45 minutes was spent on the care of this complex patient more than 50% of the time was spent in counseling and care coordination. Past Medical History Past Medical History: Diabetes Mellitus History of Any Multi-Drug Resistant Organisms: None Reported Past Surgical History: No Surgical Hx Reported Past Psychological History: No Psychological Hx Reported Smoking Status: Current every day smoker Past Alcohol Use History: Abuse Past Drug Use History: Cocaine, Marijuana Medications and Allergies Home Medications Medication Instructions Recorded Confirmed Type Aspirin 81 mg PO DAILY 05/17/21 06/04/22 History INSULIN LISPRO (HumaLOG) [humaLOG] 8 units SQ AC-TID 05/17/21 06/04/22 History Insulin Glargine,Hum.rec.anlog 30 unit SQ DAILY 05/17/21 06/04/22 History [Lantus Solostar Pen] Insulin Glargine,Hum.rec.anlog 40 unit SQ HS 05/17/21 06/04/22 History [Lantus Solostar Pen] ALPRAZolam [Xanax] 0.5 mg PO TID 06/04/22 06/04/22 History ARIPiprazole [Abilify] 15 mg PO DAILY 06/04/22 06/04/22 History Ammonium Lactate Cream [Lac-Hydrin 1 applic TOPICAL DAILY 06/04/22 06/04/22 History 12% Cream] Citalopram Hydrobromide [CeleXA] 10 mg PO DAILY 06/04/22 06/04/22 History Empagliflozin [Jardiance] 10 mg PO DAILY 06/04/22 06/04/22 History Gabapentin 600 mg PO TID 06/04/22 06/04/22 History HYDROcodone/APAP 7.5-325MG [[place] 1 tab PO DAILY 06/04/22 06/04/22 History 7.5-325] Isosorbide Mononitrate ER [Imdur] 30 mg PO DAILY 06/04/22 06/04/22 History Lidocaine 4% Patch 1 patch TOPICAL DAILY 06/04/22 06/04/22 History amLODIPine [Norvasc] 10 mg PO DAILY 06/04/22 06/04/22 History sitaGLIPtin [Januvia] 50 mg PO DAILY 06/04/22 06/04/22 History traZODone HCL 300 mg PO HS 06/04/22 06/04/22 History Allergies Allergy/AdvReac Type Severity Reaction Status Date / Time No Known Allergies Allergy Verified 06/04/22 11:19 Physical Exam Vitals: Vital Signs Temp Pulse Resp BP Pulse Ox 06/04/22 13:19 80 16 130/68 98 06/04/22 09:52 98 F 73 16 131/75 100 Intake and Output 06/03/22 06/04/22 06/04/22 22:59 06:59 14:59 Other: Weight 69.853 kg Results CBC & Chem 7: 06/04/22 10:21 06/04/22 10:21 Labs: Abnormal Lab Results - Last 24 Hours (Table) 06/04/22 06/04/22 06/04/22 Range/Units 10:04 10:21 10:21 Lymphocytes # 0.9 L (1.0-4.8) k/uL Sodium 134 L (137-145) mmol/L Glucose 333 H (74-99) mg/dL POC Glucose (mg/dL) 328 H (70-110) mg/dL Total Bilirubin 0.1 L (0.2-1.3) mg/dL Alkaline Phosphatase 138 H (38-126) U/L Total Protein 5.8 L (6.3-8.2) g/dL Urine Glucose (UA) (Negative) 06/04/22 Range/Units 10:21 Lymphocytes # (1.0-4.8) k/uL Sodium (137-145) mmol/L Glucose (74-99) mg/dL POC Glucose (mg/dL) (70-110) mg/dL Total Bilirubin (0.2-1.3) mg/dL Alkaline Phosphatase (38-126) U/L Total Protein (6.3-8.2) g/dL Urine Glucose (UA) 4+ H (Negative)
[2022-06-04] MEDS ORDERED: DEXTROSE 50% SYRINGE 50 ML IVP PRN ×2 (17:02)
[2022-06-04] MEDS ORDERED: INSULIN ASPART (NovoLOG) 100 UNIT/ML VIAL SQ SCH (17:30)
--- NOTE | 2022-06-04 17:37 | CA ---
Transthoracic Echo Report Name: Asher Tai Age: 51 Gender: M : 1970 Exam Date: 06/04/2022 13:11 Exam Location: [facility] Ht (in): 71 Wt (lb): 154 Ordering Physician: Michelle Flaherty Attending/Referring Phys: [employer] Supervisor Ernestina Dave RDCS Procedure CPT: Indications: LV function ,chest pain hx alcohol and drug abuse Cardiac Hx: Technical Quality: Good Contrast 1: Total Dose (mL): Contrast 2: Total Dose (mL): MEASUREMENTS (Male / Female) Normal Values 2D ECHO LV Diastolic Diameter PLAX 4.1 cm 4.2 - 5.9 / 3.9 - 5.3 cm LV Systolic Diameter PLAX 2.2 cm IVS Diastolic Thickness 1.1 cm 0.6 - 1.0 / 0.6 - 0.9 cm LVPW Diastolic Thickness 0.9 cm 0.6 - 1.0 / 0.6 - 0.9 cm LV Relative Wall Thickness 0.5 LA Volume 24.5 cm??? 18 - 58 / 22 - 52 cm??? M-MODE Aortic Root Diameter MM 3.1 cm LA Systolic Diameter MM 1.7 cm LA Ao Ratio MM 0.5 MV E Point Septal Separation 0.5 cm AV Cusp Separation MM 2.1 cm DOPPLER AV Peak Velocity 106.0 cm/s AV Peak Gradient 4.5 mmHg LVOT Peak Velocity 83.4 cm/s LVOT Peak Gradient 2.8 mmHg MV Area PHT 2.9 cm??? MR Peak Velocity 94.7 cm/s MR Peak Gradient 3.6 mmHg Mitral E Point Velocity 71.3 cm/s Mitral A Point Velocity 75.0 cm/s Mitral E to A Ratio 0.9 MV Deceleration Time 264.1 ms MV E' Velocity 6.9 cm/s Mitral E to MV E' Ratio 10.3 TR Peak Velocity 163.8 cm/s TR Peak Gradient 10.7 mmHg Right Ventricular Systolic Press 15.7 mmHg FINDINGS Left Ventricle Left ventricular ejection fraction is estimated at 55-60 %. Normal Left ventricular size, wall thickness, systolic function with no obvious regional wall motion abnormalities. Normal Left ventricular diastolic filling pattern. Left ventricular cavity size normal. Right Ventricle The right ventricle is normal in size and function. Right Atrium The right atrium is normal in size. Left Atrium The left atrium is normal in size. Mitral Valve Structurally normal mitral valve without significant stenosis or prolapse. There is trace mitral regurgitation. Aortic Valve Structurally normal aortic valve without significant sclerosis or stenosis. There is no aortic regurgitation. Tricuspid Valve Structurally normal tricuspid valve without significant stenosis. Pulmonary artery systolic pressure is normal. Trace tricuspid regurgitation. Pulmonic Valve Structurally normal pulmonic valve without significant stenosis. There is no pulmonic regurgitation. Pericardium Normal pericardium without effusion. Aorta Normal aortic root dimension. CONCLUSIONS Normal LV function Previewed by: Dr. Thomas Malhotra MD (Electronically Signed) Final Date: 04 June 2022 17:36
[2022-06-04 17:38] LABS: Glucose,Whole Blood 265 mg/dL (70-110)
[2022-06-04] MEDS: INSULIN ASPART (NovoLOG) 100 UNIT/ML VIAL SQ SCH (18:04)
[2022-06-04 20:50] LABS: Glucose,Whole Blood 220 mg/dL (70-110)
[2022-06-04] MEDS ORDERED: traZODone HCL 100 MG TAB PO SCH (21:00)
[2022-06-04] MEDS ORDERED: INSULIN DETEMIR (LEVEMIR) 100 UNIT/ML SYR SQ SCH (21:00)
[2022-06-04] MEDS: ALPRAZolam 0.5 MG TAB PO SCH (21:30)
[2022-06-04] MEDS: GABAPENTIN 300 MG CAP PO SCH (21:30)
[2022-06-04] MEDS: HEPARIN SODIUM,PORCINE/PF 5,000 UNIT/0.5 ML SYRINGE SQ SCH (21:35)
[2022-06-05] MEDS: SODIUM CHLORIDE 0.9% 1,000 ML IV SCH (02:14)
[2022-06-05 07:27] LABS: Glucose,Whole Blood 317 mg/dL (70-110)
[2022-06-05 07:42] VITALS: BP 131/69; PULSE 94; RESP 20; TEMP 98.7
[2022-06-05] MEDS: ALPRAZolam 0.5 MG TAB PO SCH (08:12)
[2022-06-05] MEDS: GABAPENTIN 300 MG CAP PO SCH (08:12)
[2022-06-05] MEDS: HEPARIN SODIUM,PORCINE/PF 5,000 UNIT/0.5 ML SYRINGE SQ SCH (08:12)
[2022-06-05] MEDS: INSULIN ASPART (NovoLOG) 100 UNIT/ML VIAL SQ SCH (08:13)
[2022-06-05] MEDS ORDERED: NON FORMULARY DRUG (Empagliflozin [Jardiance] 10 MG Tablet) PO SCH (09:00)
[2022-06-05] MEDS ORDERED: INSULIN DETEMIR (LEVEMIR) 100 UNIT/ML SYR SQ SCH (09:00)
[2022-06-05] MEDS ORDERED: ISOSORBIDE MONONITRATE ER 30 MG TAB.ER.24H PO SCH (09:00)
[2022-06-05] MEDS ORDERED: ASPIRIN 81 MG PO SCH (09:00)
[2022-06-05] MEDS ORDERED: CITALOPRAM HYDROBROMIDE 10 MG TAB PO SCH (09:00)
[2022-06-05] MEDS ORDERED: HYDROcodone/APAP 7.5-325MG 1 EACH TAB PO SCH (09:00)
[2022-06-05] MEDS ORDERED: amLODIPine 10 MG TAB PO SCH (09:00)
[2022-06-05] MEDS ORDERED: ARIPiprazole 15 MG TAB PO SCH (09:00)
[2022-06-05 09:18] LABS: Basophils # (A) 0.05 X 10*3/uL (0.00-0.10); Basophils % (A) 0.6 %; Eosinophils # (A) 0.77 X 10*3/uL (0.04-0.35); Eosinophils % (A) 9.1 %; HCT 40.9 % (39.6-50.0); HGB 12.9 g/dL (13.0-17.0); Immature Grans, Automated 0.2 %; Lymphocytes # (A) 1.45 X 10*3/uL (0.90-5.00); Lymphocytes % (A) 17.1 %; MCHC 31.5 g/dL (32.0-37.0); MCV 85.6 fL (80.0-97.0); Mean Platelet Volume 10.4 fL (9.5-12.2); Monocytes # (A) 0.79 X 10*3/uL (0.20-1.00); Monocytes % (A) 9.3 %; NRBC Per 100 WBC 0 /100 WBCS (0.0-0.0); Neutrophils # (A) 5.38 X 10*3/uL (1.80-7.70); Neutrophils % (A) 63.7 %; Platelet Count 184 X 10*3/uL (140-440); RBC 4.78 X 10*6/uL (4.40-5.60); RDW 13.2 % (11.5-14.5); WBC 8.46 X 10*3/uL (4.50-10.00)
[2022-06-05 09:33] LABS: African American GFR (CKD) 113.4 (60.0-200.0); Anion Gap 9.3 mmol/L (10.00-18.00); Blood Urea Nitrogen 14.4 mg/dL (9.0-27.0); Calcium 8.8 mg/dL (8.7-10.3); Carbon Dioxide 26.7 mmol/L (20.0-27.5); Non-African American GFR(CKD) 97.9 (60.0-200.0); Potassium 4.5 mmol/L (3.5-5.5)
--- NOTE | 2022-06-05 11:29 | P.PN ---
Subjective Progress Note Date: 06/05/22 This is a pleasant 50-year-old -[place] male past medical history significant for cocaine abuse, chronic nicotine dependence, history of alcohol abuse, uncontrolled diabetes, hypertension and dyslipidemia. 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 We have been asked to see in consultation for chest pain. He presents to the emergency department with complaints of left sided chest pain, shortness of breath for a few seconds and dizziness, and some left shoulder pain. He states it is alleviated by movement/walking and palpating the left chest. No specific aggravating factors. It is non-exertional. Patient is examined today resting comfortably in bed without signs of acute distress. He denies chest pain or increased shortness of breath. He has been up ambulating in the halls multiple times without any episode of chest pain. His echocardiogram showed a normal LV function without significant valvular disease. His troponins are negative 3. His repeat EKG this morning shows sinus rhythm with sinus arrhythmia and PACs. Chest pain appears to be non- cardiac and related to illicit drug use. Patient encouraged to abstain from drug use Objective - Vital Signs Vital signs: Vital Signs Temp 98.7 F 06/05/22 07:00 Pulse 94 06/05/22 08:00 Resp 20 06/05/22 08:00 BP 131/69 06/05/22 07:00 Pulse Ox 98 06/05/22 07:00 FiO2 Intake & Output 06/04/22 06/05/22 06/05/22 18:59 06:59 18:59 Intake Total 222 Balance 222 Weight 69.853 kg Intake: Oral 222 Other: # Voids 1 1 # Bowel Movements 0 - Exam PHYSICAL EXAM: VITAL SIGNS: Reviewed. GENERAL: Well-developed in no acute distress. HEENT: Head is normocephalic. Pupils are equal, round. Sclerae anicteric. Mucous membranes of the mouth are moist. NECK: Supple. No JVD or thyromegaly RESPIRATORY: Respirations even and unlabored. Lungs diminished to auscultation bilaterally. CARDIO: Regular rate and rhythm. S1 and S2 heard. No murmur or gallops. EXTREMITIES: Normal range of motion. No clubbing or cyanosis. Peripheral pulses intact. Negative for bilateral lower extremity edema NEURO: Orientated to person, time, mood is appropriate - Labs CBC & Chem 7: 06/05/22 03:58 06/05/22 03:58 Labs: Abnormal Lab Results - Last 24 Hours (Table) 06/04/22 06/04/22 06/04/22 Range/Units 10:04 10:21 10:21 Hgb (13.0-17.0) g/dL MCHC (32.0-37.0) g/dL Lymphocytes # 0.9 L (1.0-4.8) k/uL Eosinophils # (0.04-0.35) X 10*3/uL Sodium 134 L (137-145) mmol/L Anion Gap (10.00-18.00) mmol/L Glucose 333 H (74-99) mg/dL POC Glucose (mg/dL) 328 H (70-110) mg/dL Hemoglobin A1c (0.0-6.0) % Total Bilirubin 0.1 L (0.2-1.3) mg/dL Alkaline Phosphatase 138 H (38-126) U/L Total Protein 5.8 L (6.3-8.2) g/dL Urine Glucose (UA) (Negative) 06/04/22 06/04/22 06/04/22 Range/Units 10:21 10:21 17:36 Hgb (13.0-17.0) g/dL MCHC (32.0-37.0) g/dL Lymphocytes # (1.0-4.8) k/uL Eosinophils # (0.04-0.35) X 10*3/uL Sodium (137-145) mmol/L Anion Gap (10.00-18.00) mmol/L Glucose (74-99) mg/dL POC Glucose (mg/dL) 265 H (70-110) mg/dL Hemoglobin A1c 9.1 H (0.0-6.0) % Total Bilirubin (0.2-1.3) mg/dL Alkaline Phosphatase (38-126) U/L Total Protein (6.3-8.2) g/dL Urine Glucose (UA) 4+ H (Negative) 06/04/22 06/05/22 06/05/22 Range/Units 20:49 03:58 03:58 Hgb 12.9 L (13.0-17.0) g/dL MCHC 31.5 L (32.0-37.0) g/dL Lymphocytes # (1.0-4.8) k/uL Eosinophils # 0.77 H (0.04-0.35) X 10*3/uL Sodium (137-145) mmol/L Anion Gap 9.30 L (10.00-18.00) mmol/L Glucose 328 H (74-99) mg/dL POC Glucose (mg/dL) 220 H (70-110) mg/dL Hemoglobin A1c (0.0-6.0) % Total Bilirubin (0.2-1.3) mg/dL Alkaline Phosphatase (38-126) U/L Total Protein (6.3-8.2) g/dL Urine Glucose (UA) (Negative) 06/05/22 Range/Units 07:26 Hgb (13.0-17.0) g/dL MCHC (32.0-37.0) g/dL Lymphocytes # (1.0-4.8) k/uL Eosinophils # (0.04-0.35) X 10*3/uL Sodium (137-145) mmol/L Anion Gap (10.00-18.00) mmol/L Glucose (74-99) mg/dL POC Glucose (mg/dL) 317 H (70-110) mg/dL Hemoglobin A1c (0.0-6.0) % Total Bilirubin (0.2-1.3) mg/dL Alkaline Phosphatase (38-126) U/L Total Protein (6.3-8.2) g/dL Urine Glucose (UA) (Negative) Assessment and Plan Assessment: Chest pain, atypical, occurred after cocaine use, also endorses relief with activity and palpating the left chest Hyperglycemia Diabetes mellitus Dyslipidemia History of alcohol abuse Illicit drug use Tobacco dependence Plan: Patient's chest discomfort does not appear to be cardiac in etiology possible musculoskeletal component troponin negative x 3 Repeat EKG reviewed 2D echocardiogram reviewed Patient is clear for discharge The above impression and plan of care have been discussed and directed by the signing physician. Elmira Rowan, nurse practitioner, acting as scribe for signing physician.
[2022-06-05 11:45] VITALS: BMI 21.4
--- NOTE | 2022-06-05 17:19 | P.DS ---
Providers Date of admission: 06/04/22 11:46 Expected date of discharge: 06/05/22 Attending physician: Angela Palafox DO Consults: 06/04/22 11:43 Consult Physician Urgent Consulting Provider: [facility] Consult Reason/Comments: acute chest pain Do you want consulting provider notified?: Yes Primary care physician: Physician Nonstaff Hospital Course: Patient is a 51-year-old male with a past medical history of crack cocaine abuse, hypertension, hyperlipidemia, diabetes mellitus, anxiety, depression and nicotine dependence. Patient was sent to the emergency department for evaluation from [facility]. Patient reports last smoking crack cocaine yesterday evening and awakening this morning with chest pain. Patient reports pain as a sharp pain to left anterior chest that waxes and wanes. Patient describes pain as sharp and denies any radiation of pain. Patient reports pain was improved after receiving nitroglycerin administered by EMS prior to arrival to the emergency department. Patient denies having any headache, lightheadedness, dizziness, palpitations, shortness of breath, dyspnea with exertion, nausea, vomiting, or experiencing any numbness/ tingling/weakness/swelling in his extremities. Patient underwent full evaluation in the emergency department CBC, coags, and CMP showing no significant abnormalities with the exception of mild pseudohyponatremia, hyperglycemia with glucose of 333 and elevated alkaline phosphatase of 138. Troponin negative at less than 0.012. EKG showing normal sinus rhythm at 74 bpm. Chest x-ray negative for acute cardiopulmonary process. Patient admitted under our services with consultation to cardiology. Troponins were trended and ACS was ruled out. Cardiology was consulted and recommended echocardiogram. Echocardiogram showed EF of 55-60% with normal wall motion abnormalities. Cardiology cleared the patient for discharge. Patient was seen and examined on 06/05/2022. He reported feeling chest pain- free and was requesting discharge. He is advised follow-up with his PCP within 1-2 days of discharge. Plan is to discharge the patient to [facility] today. He is advised against any illicit drug use. Patient verbalized understanding of the plan. General: [non toxic], [no distress], [appears at stated age] Derm: [warm], [dry] Head: [atraumatic], [normocephalic], [symmetric] Eyes: [EOMI], [no lid lag], [anicteric sclera] Mouth: [no lip lesion], [mucus membranes moist] Cardiovascular: [S1S2 reg], [no murmur] Lungs: [CTA bilateral], [no rhonchi, no rales] , [no accessory muscle use] Ext: [no gross muscle atrophy], [no edema], [no contractures] Neuro: [no focal neuro deficits] Psych: [Alert], [oriented], [appropriate affect] Discharge diagnosis: Chest pain, rule out acute coronary event Crack cocaine abuse Insulin-dependent diabetes mellitus with hyperglycemia, poorly controlled Hypertension Pertinent Studies: Echocardiogram Patient Condition at Discharge: Stable Plan - Discharge Summary Discharge Rx Participant: No New Discharge Prescriptions: Continue Insulin Glargine,Hum.rec.anlog [Lantus Solostar Pen] 30 unit SQ DAILY INSULIN LISPRO (HumaLOG) [humaLOG] 8 units SQ AC-TID Aspirin 81 mg PO DAILY Lidocaine 4% Patch 1 patch TOPICAL DAILY ALPRAZolam [Xanax] 0.5 mg PO TID ARIPiprazole [Abilify] 15 mg PO DAILY Empagliflozin [Jardiance] 10 mg PO DAILY Gabapentin 600 mg PO TID HYDROcodone/APAP 7.5-325MG [[place] 7.5-325] 1 tab PO DAILY sitaGLIPtin [Januvia] 50 mg PO DAILY Insulin Glargine,Hum.rec.anlog [Lantus Solostar Pen] 40 unit SQ HS amLODIPine [Norvasc] 10 mg PO DAILY Ammonium Lactate Cream [Lac-Hydrin 12% Cream] 1 applic TOPICAL DAILY Citalopram Hydrobromide [CeleXA] 10 mg PO DAILY Isosorbide Mononitrate ER [Imdur] 30 mg PO DAILY traZODone HCL 300 mg PO HS Discharge Medication List Aspirin 81 mg PO DAILY 05/17/21 [History] INSULIN LISPRO (HumaLOG) [humaLOG] 8 units SQ AC-TID 05/17/21 [History] Insulin Glargine,Hum.rec.anlog [Lantus Solostar Pen] 30 unit SQ DAILY 05/17/21 [History] Insulin Glargine,Hum.rec.anlog [Lantus Solostar Pen] 40 unit SQ HS 05/17/21 [History] ALPRAZolam [Xanax] 0.5 mg PO TID 06/04/22 [History] ARIPiprazole [Abilify] 15 mg PO DAILY 06/04/22 [History] Ammonium Lactate Cream [Lac-Hydrin 12% Cream] 1 applic TOPICAL DAILY 06/04/22 [History] Citalopram Hydrobromide [CeleXA] 10 mg PO DAILY 06/04/22 [History] Empagliflozin [Jardiance] 10 mg PO DAILY 06/04/22 [History] Gabapentin 600 mg PO TID 06/04/22 [History] HYDROcodone/APAP 7.5-325MG [[place] 7.5-325] 1 tab PO DAILY 06/04/22 [History] Isosorbide Mononitrate ER [Imdur] 30 mg PO DAILY 06/04/22 [History] Lidocaine 4% Patch 1 patch TOPICAL DAILY 06/04/22 [History] amLODIPine [Norvasc] 10 mg PO DAILY 06/04/22 [History] sitaGLIPtin [Januvia] 50 mg PO DAILY 06/04/22 [History] traZODone HCL 300 mg PO HS 06/04/22 [History] Follow up Appointment(s)/Referral(s): Nonstaff,Physician [Primary Care Provider] - 1-2 days Patient Instructions/Handouts: Chest Pain (GEN) Activity/Diet/Wound Care/Special Instructions: [facility] can be contacted at [phone] Follow up with your PCP within 1-2 days of discharge. Take all medications as advised. Come back to the ED or call 911 for worsening cheat pain, shortness of breath, palpitations, lightheadedness. Please refrain from any illicit drug use. Discharge Disposition: HOME SELF-CARE
== END 2022-06-05 11:42 | disposition home or self-care (01) ==
LOC: EC 09:49 → 6NMEDSUR 11:46
PROVIDERS: ADMIT Internal Medicine; ATTEND Internal Medicine
DX: R07.89 Other chest pain (principal); E11.65 Type 2 diabetes mellitus with hyperglycemia; F17.210 Nicotine dependence, cigarettes, uncomplicated; F14.10 Cocaine abuse, uncomplicated; I10 Essential (primary) hypertension; E78.5 Hyperlipidemia, unspecified; F10.10 Alcohol abuse, uncomplicated; F12.90 Cannabis use, unspecified, uncomplicated; F32.A Depression, unspecified; F41.9 Anxiety disorder, unspecified; Z79.82 Long term (current) use of aspirin; Z79.4 Long term (current) use of insulin; Z79.899 Other long term (current) drug therapy; Z79.84 Long term (current) use of oral hypoglycemic drugs
CPT/HCPCS: 36415; 93005; 93306; 80053; 80048; 83690; 83735; 84484; 85025 ×2; 85610; 85730; 81003; 83036; 71046; G0378 ×2; J1644; 96372; 99285

== ENCOUNTER 2022-07-07 11:13 | Emergency (ER) | payer OTHER ==
[2022-07-07 11:20] VITALS: TEMP 98.5
--- NOTE | 2022-07-07 12:08 | XR ---
EXAMINATION TYPE: XR elbow complete RT DATE OF EXAM: 07/07/2022 11:33 AM INDICATION: Patient age:Male; 52 years old; Reason for study: injury; COMPARISON: None TECHNIQUE: The right elbow was examined in AP, lateral, and oblique projections. FINDINGS: Osseous emiliana of the olecranon process. There is surrounding edema throughout the soft tiss ues. No evidence of fracture. No dislocation. IMPRESSION: 1. Soft tissue edema over the olecranon process, correlate for bursitis/infectious/inflammatory proc ess. 2. Osseous emiliana may represent tendinopathy. Consider elbow MRI without IV contrast.
--- NOTE | 2022-07-07 13:40 | ED ---
Upper Extremity HPI - General Chief Complaint: Extremity Injury, Upper Stated Complaint: right elbow pain & swelling Time Seen by Provider: 07/07/22 11:58 Source: patient, RN notes reviewed Mode of arrival: ambulatory Limitations: no limitations - History of Present Illness Initial Comments: 52-year-old male presents emergency Department with chief complaint of right elbow pain. Patient states he fell on it a few weeks ago but states only start swelling a few days ago . Patient states that he is currently at [facility]. Denies fevers or chills. No paresthesias. Patient states that he is [id number]. Patient denies any other complaints. - Related Data Home Medications Medication Instructions Recorded Confirmed Aspirin 81 mg PO DAILY 05/17/21 06/04/22 INSULIN LISPRO (HumaLOG) [humaLOG] 8 units SQ AC-TID 05/17/21 06/04/22 Insulin Glargine,Hum.rec.anlog 30 unit SQ DAILY 05/17/21 06/04/22 [Lantus Solostar Pen] Insulin Glargine,Hum.rec.anlog 40 unit SQ HS 05/17/21 06/04/22 [Lantus Solostar Pen] ALPRAZolam [Xanax] 0.5 mg PO TID 06/04/22 06/04/22 ARIPiprazole [Abilify] 15 mg PO DAILY 06/04/22 06/04/22 Ammonium Lactate Cream [Lac-Hydrin 1 applic TOPICAL DAILY 06/04/22 06/04/22 12% Cream] Citalopram Hydrobromide [CeleXA] 10 mg PO DAILY 06/04/22 06/04/22 Empagliflozin [Jardiance] 10 mg PO DAILY 06/04/22 06/04/22 Gabapentin 600 mg PO TID 06/04/22 06/04/22 HYDROcodone/APAP 7.5-325MG [[place] 1 tab PO DAILY 06/04/22 06/04/22 7.5-325] Isosorbide Mononitrate ER [Imdur] 30 mg PO DAILY 06/04/22 06/04/22 Lidocaine 4% Patch 1 patch TOPICAL DAILY 06/04/22 06/04/22 amLODIPine [Norvasc] 10 mg PO DAILY 06/04/22 06/04/22 sitaGLIPtin [Januvia] 50 mg PO DAILY 06/04/22 06/04/22 traZODone HCL 300 mg PO HS 06/04/22 06/04/22 Allergies Allergy/AdvReac Type Severity Reaction Status Date / Time No Known Allergies Allergy Verified 07/07/22 11:20 Review of Systems ROS Statement: Those systems with pertinent positive or pertinent negative responses have been documented in the HPI. ROS Other: All systems not noted in ROS Statement are negative. Past Medical History Past Medical History: Diabetes Mellitus History of Any Multi-Drug Resistant Organisms: None Reported Past Surgical History: No Surgical Hx Reported Past Anesthesia/Blood Transfusion Reactions: No Reported Reaction Past Psychological History: No Psychological Hx Reported Smoking Status: Current every day smoker Past Alcohol Use History: Abuse Past Drug Use History: Cocaine, Marijuana General Exam Limitations: no limitations General appearance: alert, in no apparent distress Head exam: Present: atraumatic, normocephalic, normal inspection Respiratory exam: Present: normal lung sounds bilaterally. Absent: respiratory distress, wheezes, rales, rhonchi, stridor Cardiovascular Exam: Present: regular rate, normal rhythm, normal heart sounds. Absent: systolic murmur, diastolic murmur, rubs, gallop, clicks Extremities exam: Present: other (Right elbow there is swelling over the olecranon region with moderate tenderness no increased warmth no discoloration no drainage patient has full range of motion neurovascular intact.) Course Vital Signs 07/07/22 07/07/22 11:18 13:50 Temperature 98.5 F Pulse Rate 95 78 Respiratory 20 18 Rate Blood Pressure 115/71 128/72 O2 Sat by Pulse 100 99 Oximetry Medical Decision Making - Medical Decision Making X-ray shows swelling, feels slightly tender no cyst. Patient has left arm bursitis without signs of infection patient was started concerning treatment including compression, ice and anti-inflammatories. Patient will follow-up with orthopedics as needed for possible drainage. Disposition Clinical Impression: Olecranon bursitis, right elbow Disposition: HOME SELF-CARE Condition: Stable Instructions (If sedation given, give patient instructions): Elbow Bursitis (ED) Additional Instructions: Apply ice, compression and take ibuprofen as directed.Please return to the Emergency Department if symptoms worsen or any other concerns. Is patient prescribed a controlled substance at d/c from ED?: No Referrals: Nonstaff,Physician [Primary Care Provider] - 1-2 days David Munguia DO [Doctor of Osteopathic Medicine] - 1-2 days Time of Disposition: 13:40
[2022-07-07 13:51] VITALS: BP 128/72; PULSE 78; RESP 18
== END 2022-07-07 13:51 | disposition home or self-care (01) ==
LOC: EC 11:13
DX: M70.22 Olecranon bursitis, left elbow (principal); E11.9 Type 2 diabetes mellitus without complications; F17.200 Nicotine dependence, unspecified, uncomplicated; Z79.4 Long term (current) use of insulin; Z79.84 Long term (current) use of oral hypoglycemic drugs
CPT/HCPCS: 99283

== ENCOUNTER 2022-09-10 21:54 | Emergency (ER) | payer OTHER ==
[2022-09-10 21:58] VITALS: TEMP 98.4
[2022-09-10] MEDS ORDERED: KETOROLAC 15 MG/ML 1 ML VIAL IM STA (22:59)
[2022-09-10] MEDS ORDERED: DEXAMETHASONE SOD PHOSPHATE 10 MG/ML 1 ML VIAL IM STA (22:59)
[2022-09-10] MEDS ORDERED: ORPHENADRINE 30 MG/ML 2 ML VIAL IM STA (22:59)
--- NOTE | 2022-09-10 23:18 | ED ---
Back Pain HPI - General Chief Complaint: Back Pain/Injury Stated Complaint: Back pain Time Seen by Provider: 09/10/22 22:38 Source: patient Limitations: no limitations - History of Present Illness Initial Comments: Patient is a 52-year-old male presenting with chief complaint of lower back pain. Patient has history of chronic back pain, states that today the pain worsened. No injury or trauma. No loss of bowel or bladder control or saddle paresthesia. Patient is currently being treated at [facility] for alcohol abuse. He denies any radiation of the pain. No abdominal pain, chest pain, difficulty breathing, fever, chills, nausea, vomiting, diarrhea. - Related Data Home Medications Medication Instructions Recorded Confirmed Aspirin 81 mg PO DAILY 05/17/21 06/04/22 INSULIN LISPRO (HumaLOG) [humaLOG] 8 units SQ AC-TID 05/17/21 06/04/22 Insulin Glargine,Hum.rec.anlog 30 unit SQ DAILY 05/17/21 06/04/22 [Lantus Solostar Pen] Insulin Glargine,Hum.rec.anlog 40 unit SQ HS 05/17/21 06/04/22 [Lantus Solostar Pen] ALPRAZolam [Xanax] 0.5 mg PO TID 06/04/22 06/04/22 ARIPiprazole [Abilify] 15 mg PO DAILY 06/04/22 06/04/22 Ammonium Lactate Cream [Lac-Hydrin 1 applic TOPICAL DAILY 06/04/22 06/04/22 12% Cream] Citalopram Hydrobromide [CeleXA] 10 mg PO DAILY 06/04/22 06/04/22 Empagliflozin [Jardiance] 10 mg PO DAILY 06/04/22 06/04/22 Gabapentin 600 mg PO TID 06/04/22 06/04/22 HYDROcodone/APAP 7.5-325MG [[place] 1 tab PO DAILY 06/04/22 06/04/22 7.5-325] Isosorbide Mononitrate ER [Imdur] 30 mg PO DAILY 06/04/22 06/04/22 Lidocaine 4% Patch 1 patch TOPICAL DAILY 06/04/22 06/04/22 amLODIPine [Norvasc] 10 mg PO DAILY 06/04/22 06/04/22 sitaGLIPtin [Januvia] 50 mg PO DAILY 06/04/22 06/04/22 traZODone HCL 300 mg PO HS 06/04/22 06/04/22 Previous Rx's Medication Instructions Recorded Cyclobenzaprine HCl 10 mg PO HS PRN #20 tab 09/11/22 Allergies Allergy/AdvReac Type Severity Reaction Status Date / Time No Known Allergies Allergy Verified 09/10/22 21:58 Review of Systems ROS Statement: Those systems with pertinent positive or pertinent negative responses have been documented in the HPI. ROS Other: All systems not noted in ROS Statement are negative. Past Medical History Past Medical History: Diabetes Mellitus History of Any Multi-Drug Resistant Organisms: None Reported Past Surgical History: No Surgical Hx Reported Past Anesthesia/Blood Transfusion Reactions: No Reported Reaction Past Psychological History: No Psychological Hx Reported Smoking Status: Current every day smoker Past Alcohol Use History: Abuse Past Drug Use History: Cocaine, Marijuana General Exam Limitations: no limitations General appearance: alert, in no apparent distress Head exam: Present: atraumatic, normocephalic, normal inspection Eye exam: Present: normal appearance Neck exam: Present: normal inspection Extremities exam: Present: normal inspection, full ROM Back exam: Present: normal inspection Neurological exam: Present: alert, oriented X3, CN II-XII intact Psychiatric exam: Present: normal affect, normal mood Skin exam: Present: warm, dry, intact, normal color. Absent: rash Course Vital Signs 09/10/22 21:56 Temperature 98.4 F Pulse Rate 94 Respiratory 18 Rate Blood Pressure 122/80 O2 Sat by Pulse 99 Oximetry Medical Decision Making - Medical Decision Making Patient is a 52-year-old male with history of chronic back pain presenting with chief complaint of lower back pain. Patient states that this pain is in the normal location of his chronic pain, retained the pain has worsened. No injury or trauma. No red flag symptoms. On physical examination there is paraspinal muscle tenderness. X-ray shows no compression fracture, there is a first-degree L5 through S1 spondylolisthesis with degenerative disc changes. Educated patient on these findings. Patient received Toradol, Decadron, Norflex, he was not given opioids as he is currently in rehab. Patient reports improvement in his pain on reassessment. Follow-up with PCP. Report back to ER with any new or worsening symptoms. Discussed return parameters and answered all questions. Patient conveyed verbal understanding and agreed to the plan. I discussed this case in detail with my attending Dr. Solares Disposition Clinical Impression: Mechanical back pain Disposition: HOME SELF-CARE Condition: Good Instructions (If sedation given, give patient instructions): Acute Low Back Pain (ED), Chronic Back Pain (DC) Additional Instructions: Follow-up with PCP. Report back to ER with any new or worsening symptoms. Take medication as prescribed. Muscle relaxer (cyclobenzaprine) may cause drowsiness, do not take before driving or operating heavy machinery. Prescriptions: Cyclobenzaprine HCl 10 mg PO HS PRN #20 tab PRN Reason: Spasms Is patient prescribed a controlled substance at d/c from ED?: No Referrals: Nonstaff,Physician [Primary Care Provider] - 1-2 days Time of Disposition: 00:29
--- NOTE | 2022-09-10 23:56 | XR ---
EXAMINATION TYPE: XR lumbar spine 2 or 3V DATE OF EXAM: 09/10/2022 COMPARISON: NONE HISTORY: Pain TECHNIQUE: 3 views FINDINGS: There is a mild L5-S1 spondylolisthesis. There is bilateral L5 spondylolysis. There is dege nerative disc space narrowing at L5-S1 with spur formation. No compression fracture. Sacroiliac joint s are intact. IMPRESSION: There is a first-degree L5-S1 spondylolisthesis with degenerative disc changes. No compre ssion fracture seen.
[2022-09-11 00:37] VITALS: BP 141/79; PULSE 67; RESP 16
== END 2022-09-11 00:37 | disposition home or self-care (01) ==
LOC: EC 21:54
DX: M54.50 Low back pain, unspecified (principal); E11.9 Type 2 diabetes mellitus without complications; F17.200 Nicotine dependence, unspecified, uncomplicated; F12.90 Cannabis use, unspecified, uncomplicated; F11.90 Opioid use, unspecified, uncomplicated; Z79.82 Long term (current) use of aspirin; Z79.84 Long term (current) use of oral hypoglycemic drugs; Z79.899 Other long term (current) drug therapy
CPT/HCPCS: 99283 ×2; 96372 ×4; 72100; J1100; J2360; J1885

== ENCOUNTER 2023-01-12 09:29 | Observation (INO) | payer OTHER ==
[2023-01-12] MEDS ORDERED: ASPIRIN 81 MG PO STA (09:33)
[2023-01-12] MEDS ORDERED: NITROGLYCERIN OINT 1 INCH/GM PACKET TOPICAL STA (09:33)
[2023-01-12 09:36] VITALS: RESP 18
--- NOTE | 2023-01-12 09:37 | ED ---
General Adult HPI - General Stated complaint: chest pain Time Seen by Provider: 01/12/23 09:29 Source: patient, RN notes reviewed, old records reviewed - History of Present Illness Initial comments: This a 52-year-old male who presents to us from [facility]. Patient comes in because it said 3:00 AM he started having chest pain or left-sided chest became short of breath and was a little diaphoretic. At the facility they gave him a nitro and aspirin and that did not relieve the pain they gave him some Mylanta. Patient states she woke up this morning he continued to have the chest pain he does describe it as a little bit of achiness as well as some sharpness. Patient states he is short of breath with that and he did get a nitro with the ambulance but it did not help. Patient states he does have diabetes high blood pressure and high cholesterol. Patient states his sugar was high this morning because he had muffins donuts for breakfast. Patient states she's never had any heart problems. Patient is in [facility] facility for cocaine abuse has not used in 2 weeks - Related Data Allergies Allergy/AdvReac Type Severity Reaction Status Date / Time No Known Allergies Allergy Verified 01/12/23 09:36 Review of Systems ROS Statement: Those systems with pertinent positive or pertinent negative responses have been documented in the HPI. ROS Other: All systems not noted in ROS Statement are negative. General Exam - General Exam Comments Initial Comments: GENERAL: Patient is well-developed and well-nourished. Patient is nontoxic and well- hydrated and is in mild distress. ENT: Neck is soft and supple. No significant lymphadenopathy is noted. Oropharynx is clear. Moist mucous membranes. Neck has full range of motion without eliciting any pain. 6640 EYES: The sclera were anicteric and conjunctiva were pink and moist. Extraocular movements were intact and pupils were equal round and reactive to light. Eyelids were unremarkable. PULMONARY: Unlabored respirations. Good breath sounds bilaterally. No audible rales rhonchi or wheezing was noted. CARDIOVASCULAR: There is a regular rate and rhythm without any murmurs gallops or rubs. ABDOMEN: Soft and nontender with normal bowel sounds. No palpable organomegaly was noted. There is no palpable pulsatile mass. SKIN: Skin is clear with no lesions or rashes and otherwise unremarkable. NEUROLOGIC: Patient is alert and oriented x3. Cranial nerves II through XII are grossly intact. Motor and sensory are also intact. Normal speech, volume and content. Symmetrical smile. 6640 MUSCULOSKELETAL: Normal extremities with adequate strength and full range of motion. No lower extremity swelling or edema. No calf tenderness. LYMPHATICS: No significant lymphadenopathy is noted PSYCHIATRIC: Normal psychiatric evaluation. Course Vital Signs 01/12/23 09:31 Temperature 97.5 F L Pulse Rate 90 Respiratory 18 Rate Blood Pressure 125/79 O2 Sat by Pulse 98 Oximetry Medical Decision Making - Medical Decision Making EKG was interpreted by myself shows sinus rhythm at 83 bpm ND interval 146 dresses 90 QT interval 372 QTC is 412. Patient's EKG shows no ST segment elevation or depression. Was pt. sent in by a medical professional or institution (, PA, PASTE MAKER, urgent care, hospital, or longterm...) When possible be specific @ -Patient was sent to us by the [facility] Did you speak to anyone other than the patient for history (EMS, parent, family, police, friend...)? What history was obtained from this source @ -No Did you review nursing and triage notes (agree or disagree)? Why? @ -I reviewed and agree with nursing and triage notes Were old charts reviewed (outside hosp., previous admission, EMS record, old EKG, old radiological studies, urgent care reports/EKG's, longterm records)? Report findings @ -No old charts were reviewed Differential Diagnosis (chest pain, altered mental status, abdominal pain women, abdominal pain men, vaginal bleeding, weakness, fever, dyspnea, syncope, headache, dizziness, GI bleed, back pain, seizure, CVA, palpatations, mental health, musculoskeletal)? @ -Differential Chest Pain: Stable Angina, Unstable Angina, STEMI, NSTEMI Aortic Dissection, Pneumothorax, Musculoskeletal, Esophageal Spasm GERD, Cholecystitis, Pancreatitis, Zoster, this is not meant to be an all-inclusive list. EKG interpreted by me (3pts min.). @ -As above X-rays interpreted by me (1pt min.). @ -Chest x-ray was interpreted by myself as no acute abnormalities. CT interpreted by me (1pt min.). @ -None done U/S interpreted by me (1pt. min.). @ -None done What testing was considered but not performed or refused? (CT, X-rays, U/S, labs)? Why? @ -None What meds were considered but not given or refused? Why? @ -None Did you discuss the management of the patient with other professionals (professionals i.e. , PA, PASTE MAKER, lab, RT, psych nurse, social media specialist, care associate, teacher, military source operations officer, human services case manager)? Give summary @ -Spoke with the [facility] hospitalist agreed to admit the patient and the patient wrote admitting orders Was smoking cessation discussed for >3mins.? @ -Yes Was critical care preformed (if so, how long)? @ -No Were there social determinants of health that impacted care today? How? (Homelessness, low income, unemployed, alcoholism, drug addiction, transportation, low edu. Level, literacy, decrease access to med. care, retirement, rehab)? @ -Patient is drug addicted to cocaine Was there de-escalation of care discussed even if they declined (Discuss DNR or withdrawal of care, Hospice)? DNR status @ -No What co-morbidities impacted this encounter? (DM, HTN, Smoking, COPD, CAD, Cancer, CVA, ARF, Chemo, Hep., AIDS, mental health diagnosis, sleep apnea, morbid obesity)? @ -Diabetes hypertension high cholesterol and smoking as well as cocaine abuse Was patient admitted / discharged? Hospital course, mention meds given and route, prescriptions, significant lab abnormalities, going to OR and other pertinent info. @ -Chest pain Undiagnosed new problem with uncertain prognosis? @ -No Drug Therapy requiring intensive monitoring for toxicity (Heparin, Nitro, Insulin, Cardizem)? @ -No Were any procedures done? @ -No Diagnosis/symptom? @ -Chest pain Acute, or Chronic, or Acute on Chronic? @ -Acute Uncomplicated (without systemic symptoms) or Complicated (systemic symptoms)? @ -Complicated Side effects of treatment? @ -No Exacerbation, Progression, or Severe Exacerbation? @ -No Poses a threat to life or bodily function? How? (Chest pain, USA, ID, pneumonia, PE, COPD, DKA, ARF, appy, cholecystitis, CVA, Diverticulitis, Homicidal, Suicidal, threat to staff... and all critical care pts) @ -Yes this could lead to myocardial infarction with complete hypoperfusion of organs - Lab Data Result diagrams: 01/12/23 09:43 01/12/23 09:43 Lab Results 01/12/23 01/12/23 01/12/23 Range/Units 09:43 09:43 09:43 WBC 7.3 (3.8-10.6) k/uL RBC 5.06 (4.30-5.90) m/uL Hgb 14.3 (13.0-17.5) gm/dL Hct 43.8 (39.0-53.0) % MCV 86.6 (80.0-100.0) fL MCH 28.3 (25.0-35.0) pg MCHC 32.7 (31.0-37.0) g/dL RDW 13.3 (11.5-15.5) % Plt Count 265 (150-450) k/uL MPV 7.3 Neutrophils % 70 % Lymphocytes % 15 % Monocytes % 5 % Eosinophils % 7 % Basophils % 1 % Neutrophils # 5.1 (1.3-7.7) k/uL Lymphocytes # 1.1 (1.0-4.8) k/uL Monocytes # 0.4 (0-1.0) k/uL Eosinophils # 0.5 (0-0.7) k/uL Basophils # 0.1 (0-0.2) k/uL PT 10.6 (9.0-12.0) sec INR 1.0 (<1.2) APTT 25.2 (22.0-30.0) sec Sodium 133 L (137-145) mmol/L Potassium 4.6 (3.5-5.1) mmol/L Chloride 101 (98-107) mmol/L Carbon Dioxide 28 (22-30) mmol/L Anion Gap 4 mmol/L BUN 14 (9-20) mg/dL Creatinine 0.64 L (0.66-1.25) mg/dL Est GFR (CKD-EPI)AfAm >90 (>60 ml/min/1.73 sqM) Est GFR (CKD-EPI)NonAf >90 (>60 ml/min/1.73 sqM) Glucose 357 H (74-99) mg/dL POC Glucose (mg/dL) (70-110) mg/dL POC Glu Visual Merchandising Associate ID Calcium 8.4 (8.4-10.2) mg/dL Magnesium 2.3 (1.6-2.3) mg/dL Total Bilirubin 0.3 (0.2-1.3) mg/dL AST 26 (17-59) U/L ALT 30 (4-49) U/L Alkaline Phosphatase 96 (38-126) U/L Troponin I (0.000-0.034) ng/mL Total Protein 6.1 L (6.3-8.2) g/dL Albumin 3.6 (3.5-5.0) g/dL 01/12/23 01/12/23 Range/Units 09:43 09:44 WBC (3.8-10.6) k/uL RBC (4.30-5.90) m/uL Hgb (13.0-17.5) gm/dL Hct (39.0-53.0) % MCV (80.0-100.0) fL MCH (25.0-35.0) pg MCHC (31.0-37.0) g/dL RDW (11.5-15.5) % Plt Count (150-450) k/uL MPV Neutrophils % % Lymphocytes % % Monocytes % % Eosinophils % % Basophils % % Neutrophils # (1.3-7.7) k/uL Lymphocytes # (1.0-4.8) k/uL Monocytes # (0-1.0) k/uL Eosinophils # (0-0.7) k/uL Basophils # (0-0.2) k/uL PT (9.0-12.0) sec INR (<1.2) APTT (22.0-30.0) sec Sodium (137-145) mmol/L Potassium (3.5-5.1) mmol/L Chloride (98-107) mmol/L Carbon Dioxide (22-30) mmol/L Anion Gap mmol/L BUN (9-20) mg/dL Creatinine (0.66-1.25) mg/dL Est GFR (CKD-EPI)AfAm (>60 ml/min/1.73 sqM) Est GFR (CKD-EPI)NonAf (>60 ml/min/1.73 sqM) Glucose (74-99) mg/dL POC Glucose (mg/dL) 355 H (70-110) mg/dL POC Glu Visual Merchandising Associate ID Anam, Charity Calcium (8.4-10.2) mg/dL Magnesium (1.6-2.3) mg/dL Total Bilirubin (0.2-1.3) mg/dL AST (17-59) U/L ALT (4-49) U/L Alkaline Phosphatase (38-126) U/L Troponin I <0.012 (0.000-0.034) ng/mL Total Protein (6.3-8.2) g/dL Albumin (3.5-5.0) g/dL Disposition Clinical Impression: Chest pain Disposition: ADMITTED IP TO THIS HOSP Referrals: Nonstaff,Physician [Primary Care Provider] - 1-2 days Time of Disposition: 10:33
[2023-01-12 09:46] LABS: Glucose,Whole Blood 355 mg/dL (70-110)
[2023-01-12 09:57] LABS: Basophils # (A) 0.1 k/uL (0-0.2); Basophils % (A) 1 %; Eosinophils # (A) 0.5 k/uL (0-0.7); Eosinophils % (A) 7 %; HCT 43.8 % (39.0-53.0); HGB 14.3 gm/dL (13.0-17.5); Lymphocytes # (A) 1.1 k/uL (1.0-4.8); Lymphocytes % (A) 15 %; MCH 28.3 pg (25.0-35.0); MCHC 32.7 g/dL (31.0-37.0); MCV 86.6 fL (80.0-100.0); Mean Platelet Volume 7.3; Monocytes # (A) 0.4 k/uL (0-1.0); Monocytes % (A) 5 %; Neutrophils # (A) 5.1 k/uL (1.3-7.7); Neutrophils % (A) 70 %; Platelet Count 265 k/uL (150-450); RBC 5.06 m/uL (4.30-5.90); RDW 13.3 % (11.5-15.5); WBC 7.3 k/uL (3.8-10.6)
[2023-01-12 10:07] LABS: ALT 30 U/L (4-49); AST 26 U/L (17-59); African American GFR (CKD) >90 (>60 ml/min/1.73 sqM); Albumin 3.6 g/dL (3.5-5.0); Alkaline Phosphatase 96 U/L (38-126); Anion Gap 4 mmol/L; Blood Urea Nitrogen 14 mg/dL (9-20); Calcium 8.4 mg/dL (8.4-10.2); Carbon Dioxide 28 mmol/L (22-30); Chloride 101 mmol/L (98-107); Glucose 357 mg/dL (74-99); Magnesium 2.3 mg/dL (1.6-2.3); Non-African American GFR(CKD) >90 (>60 ml/min/1.73 sqM); Partial Thromboplastin Time 25.2 sec (22.0-30.0); Potassium 4.6 mmol/L (3.5-5.1); Prothrombin Time 10.6 sec (9.0-12.0); Sodium 133 mmol/L (137-145); Total Bilirubin 0.3 mg/dL (0.2-1.3); Total Protein 6.1 g/dL (6.3-8.2)
--- NOTE | 2023-01-12 10:07 | XR ---
EXAMINATION TYPE: XR chest 2V DATE OF EXAM: 01/12/2023 COMPARISON: 06/04/2022 HISTORY: 52-year-old male with chest pain TECHNIQUE: PA and lateral views FINDINGS: The cardiomediastinal silhouette, aorta, and pulmonary vasculature are within normal limits. Lungs an d pleural spaces are clear. IMPRESSION: No acute cardiopulmonary process.
[2023-01-12] MEDS ORDERED: INSULIN ASPART (NovoLOG) 100 UNIT/ML VIAL SQ ONE (10:30)
[2023-01-12] MEDS ORDERED: NITROGLYCERIN SL TABS 0.4 MG TAB SUBLINGUAL PRN (10:34)
[2023-01-12 12:36] LABS: Glucose,Whole Blood 81 mg/dL (70-110)
[2023-01-12] MEDS ORDERED: DEXTROSE 50% SYRINGE 50 ML IVP PRN (14:49)
[2023-01-12] MEDS ORDERED: ACETAMINOPHEN TAB 325 MG TAB PO PRN (14:50)
[2023-01-12] MEDS: NITROGLYCERIN OINT 1 INCH/GM PACKET TOPICAL SCH ×2 (17:01→17:33)
[2023-01-12 17:27] LABS: Glucose,Whole Blood 134 mg/dL (70-110)
[2023-01-12] MEDS: INSULIN ASPART (NovoLOG) 100 UNIT/ML VIAL SQ SCH ×2 (17:34→21:03)
[2023-01-12] MEDS: HEPARIN SODIUM,PORCINE/PF 5,000 UNIT/0.5 ML SYRINGE SQ SCH ×2 (17:34→21:03)
[2023-01-12] MEDS ORDERED: INSULIN DETEMIR (LEVEMIR) 100 UNIT/ML SYR SQ SCH (21:00)
[2023-01-12 21:07] LABS: Glucose,Whole Blood 270 mg/dL (70-110)
--- NOTE | 2023-01-13 00:06 | P.HPIM ---
History of Present Illness H&P Date: 01/12/23 Chief Complaint: Chest pain Patient is a 52-year-old male with a known history of hypertension, hyperlipidemia, diabetes type 2 insulin-dependent, osteoarthritis, currently ev eryday smoker and occasional marijuana use and cocaine use currently at rehab presents to ER with complaints of chest pain. Patient states that he started having sharp left retrosternal chest pain started around 3 AM and woke up from sleep. Associate with mild shortness of breath and felt like swe ating/diaphoretic. Denied any radiation of the pain. No associated nausea or vomiting. Patient is having on and off pains and subsided around 8 AM. Patient started back again symptoms at 10 AM and was brought to the hospital. He was given nitroglycerin and aspirin at the facility without any improvement in symptoms. Denies any prior history of coronary artery disease. Patient is currently at [place] for cocaine abuse and rehab. Has not used in the last 2 weeks. Chest x-ray showed no acute cardiopulmonary process EKG showed sinus rhythm. Laboratory data showed WBC 7.3 hemoglobin 14.3 and platelets 265 sodium 133 potassium 4.6 chloride 101 bicarb is 28 BUN 14 and creatinine 0.64 and blood sugar is 355 Troponin x2 negative and Dr. Nerusu not elevated. Review of Systems Constitutional: Patient denies any fever or chills . no Generalized weakness. Abdomen: Patient denied any nausea or vomiting or abd. pain Cardiovascular: Patient denies any chest pain or short of breath no palpitations. Respiratory: patient denied any cough . no sputum production. No shortness of breath Neurologic: Patient denied any numbness or tingling headache. Musculoskeletal: Patient denies any complaints of joint swelling or deformity. Skin: Negative Psychiatric: Negative Endocrine: No heat or cold intolerance. No recent weight gain. Genitourinary: No dysuria or hematuria. All other 14 point ROS negative except the above Past Medical History Past Medical History: Diabetes Mellitus, Hyperlipidemia, Hypertension, Osteoarthritis (OA) History of Any Multi-Drug Resistant Organisms: None Reported Past Surgical History: No Surgical Hx Reported Smoking Status: Current every day smoker Past Alcohol Use History: Occasional Past Drug Use History: Cocaine, Marijuana Medications and Allergies Home Medications Medication Instructions Recorded Confirmed Type ARIPiprazole [Abilify] 15 mg PO DAILY 01/12/23 01/12/23 History Acetaminophen [Tylenol 8 Hour] 650 mg PO Q4H PRN 01/12/23 01/12/23 History Calcium/Mag/Zinc/June D 1 tab PO TID PRN 01/12/23 01/12/23 History Citalopram Hydrobromide [CeleXA] 10 mg PO DAILY 01/12/23 01/12/23 History Empagliflozin [Jardiance] 10 mg PO DAILY 01/12/23 01/12/23 History Ibuprofen [Motrin Ib] 600 mg PO Q6H PRN 01/12/23 01/12/23 History Insulin Glargine,Hum.rec.anlog 35 units SQ DAILY 01/12/23 01/12/23 History [Lantus Solostar Pen] Insulin Glargine,Hum.rec.anlog 45 units SQ HS 01/12/23 01/12/23 History [Lantus Solostar Pen] Insulin Lispro 1 - 8 units SQ TID-W/MEALS 01/12/23 01/12/23 History Mag Hydrox/Aluminum Hyd/Simeth 30 ml PO Q4H PRN 01/12/23 01/12/23 History [Mylanta Maximum Strength Liq] Mirtazapine [Remeron] 15 - 30 mg PO HS 01/12/23 01/12/23 History amLODIPine [Norvasc] 10 mg PO DAILY 01/12/23 01/12/23 History sitaGLIPtin [Januvia] 50 mg PO HS 01/12/23 01/12/23 History Allergies Allergy/AdvReac Type Severity Reaction Status Date / Time No Known Allergies Allergy Verified 01/12/23 11:00 Physical Exam Vitals: Vital Signs Temp Pulse Pulse Resp BP BP Pulse Ox 01/12/23 12:30 98.0 F 79 18 112/70 99 01/12/23 11:00 79 18 125/79 99 01/12/23 09:31 97.5 F L 90 18 125/79 98 Intake and Output 01/11/23 01/12/23 01/12/23 22:59 06:59 14:59 Intake Total 118 Balance 118 Intake: Oral 118 Other: Weight 72.121 kg PHYSICAL EXAMINATION: Patient is lying in the bed comfortably, no acute distress, awake alert and oriented.. HEENT: Normocephalic. Neck is supple. Pupils reactive. Nostrils clear. Oral cavity is moist. Neck reveals no JVD, carotid bruits, or thyromegaly. CHEST EXAMINATION: Trachea is central. Symmetrical expansion. Lung yates clear to auscultation and percussion. CARDIAC: Normal S1, S2 with no gallops. No murmurs ABDOMEN: Soft. Bowel sounds present. Nontender. No organomegaly. No abdominal bruits. Extremities: reveal no edema. No clubbing or cyanosis Neurologically awake, alert, oriented x3 with well-coordinated movements. No focal deficits noted Skin: No rash or skin lesions. Psychiatric: Coperative. Nonsuicidal, Musculoskeletal: No joint swelling or deformity. Normal range of motion. Results CBC & Chem 7: 01/12/23 09:43 01/12/23 09:43 Labs: Abnormal Lab Results - Last 24 Hours (Table) 01/12/23 01/12/23 Range/Units 09:43 09:44 Sodium 133 L (137-145) mmol/L Creatinine 0.64 L (0.66-1.25) mg/dL Glucose 357 H (74-99) mg/dL POC Glucose (mg/dL) 355 H (70-110) mg/dL Total Protein 6.1 L (6.3-8.2) g/dL Thrombosis Risk Factor Assmnt - DVT/VTE Prophylaxis DVT/VTE Prophylaxis: Pharmacologic Prophylaxis ordered Assessment and Plan Assessment: Atypical chest pain to rule out ACS. History of cocaine use currently at [facility]. Hyperglycemia uncontrolled diabetes type 2 A1c 9.3 insulin-dependent Hypertension Hyperlipidemia Osteoarthritis Currently everyday smoker DVT prophylaxis with heparin subcu Plan: Patient will be continued on telemetry monitoring. Follow-up serial EKG and troponin x3. Cardiology was consulted for evaluation. Patient was given 6 units of aspart while in the ER. Continue with home regimen and sliding scale and follow Accu-Cheks AC and bedtime. Continue with aspirin and lipid profile was ordered for tomorrow. Follow-up closely. Currently patient is symptom-free. Time with Patient: Greater than 30
[2023-01-13] MEDS: NITROGLYCERIN OINT 1 INCH/GM PACKET TOPICAL SCH ×3 (01:49→14:18)
[2023-01-13 03:00] LABS: Glucose,Whole Blood 42 mg/dL (70-110)
[2023-01-13 03:16] LABS: Glucose,Whole Blood 72 mg/dL (70-110)
[2023-01-13 05:29] LABS: Glucose,Whole Blood 109 mg/dL (70-110)
[2023-01-13] MEDS: INSULIN ASPART (NovoLOG) 100 UNIT/ML VIAL SQ SCH (05:30)
[2023-01-13] MEDS ORDERED: INSULIN DETEMIR (LEVEMIR) 100 UNIT/ML SYR SQ SCH (07:00)
[2023-01-13 07:50] LABS: Glucose,Whole Blood 51 mg/dL (70-110)
[2023-01-13] MEDS: DEXTROSE 50% SYRINGE 50 ML IVP PRN ×3 (07:55→11:36)
[2023-01-13] MEDS ORDERED: DOBUTamine DRIP for NUC MED 500 MG in DEXTROSE/WATER 1 250ML.BAG IV PRN (07:58)
[2023-01-13 08:03] VITALS: BP 109/69; PULSE 85; TEMP 98.1
[2023-01-13 08:36] LABS: Glucose,Whole Blood 73 mg/dL (70-110)
[2023-01-13] MEDS ORDERED: CITALOPRAM HYDROBROMIDE 10 MG TAB PO SCH (09:00)
[2023-01-13] MEDS ORDERED: DAPAGLIFLOZIN PROPANEDIOL 5 MG TABLET PO SCH (09:00)
[2023-01-13] MEDS ORDERED: ASPIRIN 325 MG TAB PO SCH (09:00)
[2023-01-13] MEDS ORDERED: ARIPiprazole 15 MG TAB PO SCH (09:00)
--- NOTE | 2023-01-13 09:14 | P.CRDCN ---
History of Present Illness Consult date: 01/13/23 Consult reason: chest pain History of present illness: History of present illness: This is a 52-year-old male previously seen by cardiology and does not follow with a title i director in the office. He denies previous cardiac workup. He has a past medical history of diabetes, diabetic neuropathy, hypertension, tobacco use and dependence, history of alcohol abuse and cocaine use. We have been asked to evaluate the patient for chest pain. Patient states that he developed chest pain on the left of his sternum that has been constant since it started at 3 AM a couple days ago. It does not cause increased pain with any movement or deep breathing. He denies having a cough. He does have some shortness of breath when he has the tightness in the chest. He is normally very active but he states he has shortness of breath when he walks and he develops tightness in his chest when he walks. No lower extremity edema. He normally sleeps on 2 pillows. He denies any history of asthma, COPD, obstructive sleep apnea. Patient states his last alcohol intake was a couple months ago and last cocaine use was 2 and half weeks ago. EKG sinus rhythm with no acute ST changes. Chest x-ray: No acute process CBC within normal limits. INR 1. Sodium 133, potassium 4.6, creatinine 0.64. Hemoglobin A1c was 9.3. Magnesium 2.3. Liver function tests are normal. Troponin negative 3 Home cardiac medications: Amlodipine 10 mg daily, Jardiance 10 mg daily Review Of Systems: At the time of my evaluation: Constitutional: No fever, no chills. No weakness, fatigue or lethargy. EENT: No headache. No dizziness. Lungs: No shortness of breath, cough, no sputum production. No wheezing. Cardiovascular: Reports left sternal chest pain, no lower extremity edema. No palpitations. No paroxysmal nocturnal dyspnea. No orthopnea. No lightheadedness or dizziness. No syncopal episodes. Abdominal: No abdominal pain. No nausea, vomiting. No diarrhea. No constipation. No bloody or tarry stools. Genitourinary: No dysuria.. No urinary retention. Musculoskeletal: No myalgias. No muscle weakness, no frequent falls. No back pain. No neck pain. Integumentary: No wounds. No rash. No unusual bruising. Neurologic: No aphasia. No facial droop. No change in mentation. No head injury. No headache. Physical examination: Gen: This is a 52-year-old black male. He is resting but appears to be comfortable and in no acute distress. VS: reviewed HEENT: Head is atraumatic, normocephalic. Pupils equal, round. Sclerae is anicteric. NECK: Supple. No JVD. . LUNGS: Clear to auscultation. No wheezes or rhonchi. No intercostal retractions. HEART: Regular rate and rhythm. No murmur. ABDOMEN: Soft No tenderness. EXTREMITIES: No pedal edema. No calf tenderness. NEUROLOGICAL: Patient is awake, alert and oriented x3. Assessment: Chest pain, acute coronary syndrome has been ruled out, most likely musculoskeletal etiology Diabetes Diabetic neuropathy Hypertension Tobacco use and dependence History of alcohol abuse History of cocaine use Plan: Obtain dobutamine stress echocardiogram today Obtain 2-D echocardiogram and Doppler study to assess cardiac structure and function If testing is within normal limits, patient is cleared from cardiology for discharge home and may follow-up in the office in 2 weeks. Thank you kindly for this consultation. Nurse practitioner note has been reviewed, I agree with documented findings and plan of care. Patient was seen and examined. Past Medical History Past Medical History: Diabetes Mellitus, Hyperlipidemia, Hypertension, Osteoarthritis (OA) Additional Past Medical History / Comment(s): neuropathy History of Any Multi-Drug Resistant Organisms: None Reported Past Surgical History: No Surgical Hx Reported Past Anesthesia/Blood Transfusion Reactions: Unable to Obtain Smoking Status: Current every day smoker Past Alcohol Use History: Occasional Past Drug Use History: Cocaine, Marijuana Medications and Allergies Home Medications Medication Instructions Recorded Confirmed Type ARIPiprazole [Abilify] 15 mg PO DAILY 01/12/23 01/12/23 History Acetaminophen [Tylenol 8 Hour] 650 mg PO Q4H PRN 01/12/23 01/12/23 History Calcium/Mag/Zinc/June D 1 tab PO TID PRN 01/12/23 01/12/23 History Citalopram Hydrobromide [CeleXA] 10 mg PO DAILY 01/12/23 01/12/23 History Empagliflozin [Jardiance] 10 mg PO DAILY 01/12/23 01/12/23 History Ibuprofen [Motrin Ib] 600 mg PO Q6H PRN 01/12/23 01/12/23 History Insulin Glargine,Hum.rec.anlog 35 units SQ DAILY 01/12/23 01/12/23 History [Lantus Solostar Pen] Insulin Glargine,Hum.rec.anlog 45 units SQ HS 01/12/23 01/12/23 History [Lantus Solostar Pen] Insulin Lispro 1 - 8 units SQ TID-W/MEALS 01/12/23 01/12/23 History Mag Hydrox/Aluminum Hyd/Simeth 30 ml PO Q4H PRN 01/12/23 01/12/23 History [Mylanta Maximum Strength Liq] Mirtazapine [Remeron] 15 - 30 mg PO HS 01/12/23 01/12/23 History amLODIPine [Norvasc] 10 mg PO DAILY 01/12/23 01/12/23 History sitaGLIPtin [Januvia] 50 mg PO HS 01/12/23 01/12/23 History Allergies Allergy/AdvReac Type Severity Reaction Status Date / Time No Known Allergies Allergy Verified 01/12/23 11:00 Physical Exam Vitals: Vital Signs Temp Pulse Pulse Resp BP BP Pulse Ox 01/13/23 02:41 98.4 F 71 18 118/69 97 01/12/23 20:00 86 01/12/23 19:20 98.0 F 86 18 114/69 98 01/12/23 15:00 98.1 F 86 18 111/63 97 01/12/23 12:30 98.0 F 79 18 112/70 99 01/12/23 11:00 79 18 125/79 99 01/12/23 09:31 97.5 F L 90 18 125/79 98 Intake and Output 01/12/23 01/13/23 01/13/23 22:59 06:59 14:59 Intake Total 118 Balance 118 Intake: Oral 118 Other: # Voids 2 3 Results 01/12/23 09:43 01/12/23 09:43 Cardiac Enzymes 01/12/23 01/12/23 01/12/23 Range/Units 09:43 09:43 12:36 AST 26 (17-59) U/L Troponin I <0.012 <0.012 (0.000-0.034) ng/mL 01/12/23 Range/Units 16:24 AST (17-59) U/L Troponin I <0.012 (0.000-0.034) ng/mL Coagulation 01/12/23 Range/Units 09:43 PT 10.6 (9.0-12.0) sec APTT 25.2 (22.0-30.0) sec CBC 01/12/23 Range/Units 09:43 WBC 7.3 (3.8-10.6) k/uL RBC 5.06 (4.30-5.90) m/uL Hgb 14.3 (13.0-17.5) gm/dL Hct 43.8 (39.0-53.0) % Plt Count 265 (150-450) k/uL Comprehensive Metabolic Panel 01/12/23 Range/Units 09:43 Sodium 133 L (137-145) mmol/L Potassium 4.6 (3.5-5.1) mmol/L Chloride 101 (98-107) mmol/L Carbon Dioxide 28 (22-30) mmol/L BUN 14 (9-20) mg/dL Creatinine 0.64 L (0.66-1.25) mg/dL Glucose 357 H (74-99) mg/dL Calcium 8.4 (8.4-10.2) mg/dL AST 26 (17-59) U/L ALT 30 (4-49) U/L Alkaline Phosphatase 96 (38-126) U/L Total Protein 6.1 L (6.3-8.2) g/dL Albumin 3.6 (3.5-5.0) g/dL Current Medications Generic Name Dose Route Start Last Admin Trade Name Freq PRN Reason Stop Dose Admin Acetaminophen 650 mg 01/12/23 14:50 Acetaminophen Tab 325 Mg Tab PO Q4H PRN Fever and/ or Pain Aripiprazole 15 mg 01/13/23 09:00 Aripiprazole 15 Mg Tab PO DAILY RENA Aspirin 325 mg 01/13/23 09:00 Aspirin 325 Mg Tab PO DAILY [facility] Citalopram Hydrobromide 10 mg 01/13/23 09:00 Citalopram Hydrobromide 10 Mg Tab PO DAILY RENA Dapagliflozin 5 mg 01/13/23 09:00 Dapagliflozin Propanediol 5 Mg Tablet PO DAILY [facility] Dextrose/Water 25 ml 01/12/23 14:49 Dextrose 50% Syringe 50 Ml IVP PER PROTOCOL PRN Hypoglycemia Protocol Dextrose/Water 50 ml 03/19/23 14:49 Dextrose 50% Syringe 50 Ml IVP PER PROTOCOL PRN Hypoglycemia Protocol Heparin Sodium (Porcine) 5,000 unit 01/12/23 16:00 01/12/23 21:03 Heparin Sodium,Porcine/Pf 5,000 Unit/0.5 Ml Syringe SQ Not Given Q8HR [facility] Insulin Aspart 0 unit 01/12/23 17:30 01/13/23 05:30 Insulin Aspart (Novolog) 100 Unit/Ml Vial SQ Not Given ACHS RENA Protocol Insulin Detemir 35 unit 01/13/23 07:00 Insulin Detemir (Levemir) 100 Unit/Ml Syr SQ DAILY@0700 [facility] Insulin Detemir 45 unit 01/12/23 21:00 01/12/23 21:03 Insulin Detemir (Levemir) 100 Unit/Ml Syr SQ 45 unit HS [facility] Administration Nitroglycerin 0.4 mg 01/12/23 10:34 Nitroglycerin Sl Tabs 0.4 Mg Tab SUBLINGUAL Q5M PRN Chest Pain Nitroglycerin 1 inch 01/12/23 12:00 01/13/23 05:29 Nitroglycerin Oint 1 Inch/Gm Packet TOPICAL Not Given Q6HR [facility] Intake and Output 01/12/23 01/13/23 01/13/23 22:59 06:59 14:59 Intake Total 118 Balance 118 Intake: Oral 118 Other: # Voids 2 3 01/12/23 09:43 01/12/23 09:43
[2023-01-13 09:15] LABS: African American GFR (CKD) 118.2 (60.0-200.0); BUN/Creat Ratio 14.63 Ratio (12.00-20.00); Blood Urea Nitrogen 11.7 mg/dL (9.0-27.0); Calcium 8.7 mg/dL (8.7-10.3); Carbon Dioxide 24.6 mmol/L (20.0-27.5); Chloride 105 mmol/L (96-109); Chol/HDL Ratio 2.44 Ratio; Glucose 119 mg/dL (70-110); LDL Cholesterol,Calculated 66.8 mg/dL (0.0-131.0); Potassium 4.6 mmol/L (3.5-5.5); Sodium 137 mmol/L (135-145)
[2023-01-13] MEDS ORDERED: DOBUTamine DRIP for NUC MED 500 MG/250 ML BAG IV ONE (11:15)
[2023-01-13] MEDS: HEPARIN SODIUM,PORCINE/PF 5,000 UNIT/0.5 ML SYRINGE SQ SCH (11:44)
[2023-01-13 11:48] LABS: Glucose,Whole Blood 51 mg/dL (70-110)
[2023-01-13 11:52] LABS: Glucose,Whole Blood 89 mg/dL (70-110)
[2023-01-13 11:52] LABS: Glucose,Whole Blood 52 mg/dL (70-110)
[2023-01-13 12:05] LABS: Glucose,Whole Blood 145 mg/dL (70-110)
--- NOTE | 2023-01-13 12:51 | CA ---
Transthoracic Echo Report Name: Asher Tai Age: 52 Gender: M : 1970 Exam Date: 01/13/2023 10:27 Exam Location: [facility] Ht (in): 71 Wt (lb): 159 Ordering Physician: Zoe Philippe Attending/Referring Phys: [id number], Denae Brush Holder Inspector Candelaria Estrada, RIP Procedure CPT: Indications: LVF Cardiac Hx: Technical Quality: Excellent Contrast 1: Total Dose (mL): Contrast 2: Total Dose (mL): MEASUREMENTS (Male / Female) Normal Values 2D ECHO LV Diastolic Diameter PLAX 4.0 cm 4.2 - 5.9 / 3.9 - 5.3 cm LV Systolic Diameter PLAX 2.2 cm IVS Diastolic Thickness 0.9 cm 0.6 - 1.0 / 0.6 - 0.9 cm LVPW Diastolic Thickness 1.0 cm 0.6 - 1.0 / 0.6 - 0.9 cm LV Relative Wall Thickness 0.5 RV Internal Dim ED PLAX 3.0 cm LA Systolic Diameter LX 2.6 cm 3.0 - 4.0 / 2.7 - 3.8 cm LV Diastolic Volume MOD 4C 53.2 cm??? LV Systolic Volume MOD 4C 20.1 cm??? LV Ejection Fraction MOD 4C 62.3 % LV Diastolic Length 4C 7.5 cm LV Systolic Length 4C 5.7 cm LV Diastolic Volume MOD 2C 50.2 cm??? LV Systolic Volume MOD 2C 15.3 cm??? LV Ejection Fraction MOD 2C 69.6 % LV Diastolic Length 2C 6.7 cm LV Systolic Length 2C 5.5 cm LA Volume 22.1 cm??? 18 - 58 / 22 - 52 cm??? M-MODE Aortic Root Diameter MM 3.2 cm MV E Point Septal Separation 0.4 cm AV Cusp Separation MM 2.1 cm DOPPLER AV Peak Velocity 132.7 cm/s AV Peak Gradient 7.0 mmHg MV Area PHT 3.8 cm??? Mitral E Point Velocity 86.3 cm/s Mitral A Point Velocity 96.0 cm/s Mitral E to A Ratio 0.9 MV Deceleration Time 199.5 ms MV E' Velocity 8.9 cm/s Mitral E to MV E' Ratio 9.7 FINDINGS Left Ventricle Left ventricular ejection fraction is estimated at 55-60 %. Left ventricular cavity size normal. Borderline left ventricular hypertrophy. Right Ventricle Normal right ventricular size and function. No TR to estimate RSVP Right Atrium Normal right atrial size. Left Atrium Normal left atrial size. Mitral Valve Structurally normal mitral valve. No mitral stenosis, or prolapse. Mild mitral regurgitation Aortic Valve Thickened aortic valve without stenosis. No aortic regurgitation. Tricuspid Valve Structurally normal tricuspid valve. Mild tricuspid regurgitation. Pulmonic Valve Structurally normal pulmonic valve. Trace pulmonic regurgitation. Pericardium Normal pericardium. No pericardial effusion. Aorta Normal size aortic root and proximal ascending aorta. CONCLUSIONS 1. Normal left ventricle size and systolic function 2. Mild mitral and tricuspid regurgitation Previewed by: Dr. Sandhya Da Silva MD (Electronically Signed) Final Date: 13 January 2023 12:50
--- NOTE | 2023-01-13 13:39 | CA ---
Dobutamine Stress Echocardiogram Report Asher Tai Age: 52 Gender: M : 1970 Exam Date: 01/13/2023 10:48 Exam Location: [facility] Ordering Physician: Zoe Philippe Referring Physician: [id number] Mills Rechecker: Nery Tinoco RDCS Technologist: Ht (in): 71 Wt (lb): 159 Procedure CPT: Indication: CP ICD-9 Codes: Rhythm: Patient History: Chest Pain. Hypertension. Cardiac Medications: Medications in past 24 hours: Contrast: Total Dose (mL): Stress Results Protocol: Peak Dose (???g/kg/min): Duration (min:sec): Atropine:(mg) Target HR: 142 Double Product: [id number] Resting HR: 90 Resting BP: 107 / 45 Peak HR: 146 Peak BP: 171 / 83 Max Predicted HR: 167 87 % Max Predicted HR Stress Summary: BP Response: Reason for Termination: Exceeded target heart rate (85% max predicted) Cardiac Symptoms: Test terminated after reaching target heart rate (85% max predicted) ECG Analysis Resting EKG: Normal sinus rhythm, normal ECG Stress EKG: No abnormal ST/T wave changes with exercise Arrhythmia: None Echo Analysis Base Echo Analysis: Normal resting echocardiogram. Low Echo Anaylsis: No segmental wall motion amounting Peak Echo Analysis: No segmental wall motion abnormality with normal wall thickening and motion was wall motion augmentation Recovery Echo: Normal Dobutamine stress echocardiogram. MEASUREMENTS (Male/Female) Normal Values CONCLUSIONS Normal electrocardiographic response to dobutamine Normal stress echocardiogram with no evidence of stress induced ischemia. Dr. Sandhya Da Silva MD (Electronically Signed) Final Date: 13 January 2023 13:38
[2023-01-13 14:16] VITALS: BMI 22.1
--- NOTE | 2023-01-14 14:21 | P.DS ---
Providers Date of admission: 01/12/23 10:37 Expected date of discharge: 01/14/23 Attending physician: Maikol Yousif Consults: 01/12/23 10:34 Consult Physician Urgent Consulting Provider: [facility] Consult Reason/Comments: Chest pain Do you want consulting provider notified?: Yes Primary care physician: Physician Nonstaff Hospital Course: Final diagnosis Atypical chest pain, ruled out ACS. Negative Stress test History of cocaine use currently at [facility]. Hyperglycemia uncontrolled diabetes type 2 A1c 9.3 insulin-dependent Hypertension Hyperlipidemia Osteoarthritis Currently everyday smoker DVT prophylaxis Discharge disposition Patient is being discharged in a stable condition with guarded prognosis to [facility] for continued alcohol and cocaine rehab. Patient will follow-up with his primary care in your home in the outpatient setting upon discharge. Patient is to follow-up with cardiology outpatient as scheduled. Total time taken is greater than 35 minutes. Hospital course This is a 52-year-old male who was recently admitted with chest pain while at [facility] for cocaine abuse. Cardiology evaluated the patient un derwent echo with stress and negative and has been cleared by cardiology recommending outpatient follow-up. Patient will be returning to [facility] to continue on his rehab. Patient encouraged to follow-up with religious activities director and primary care provider on discharge from rehab. Please refer to cardiology notes for further HPI. Currently no reports of chest pain, shortness of breath, or palpitations. Patient is afebrile. No reports of nausea or vomiting and patient is tolerating diet. Patient will be discharged back to [facility] today. Physical exam: Gen: This is a 52-year-old male who is awake, alert and oriented 3, thin built, well-nourished HEENT: Head is atraumatic, normocephalic. Pupils equal, round. Sclerae is anicteric. NECK: Supple. No JVD. No lymphadenopathy. No thyromegaly. LUNGS: Clear to auscultation. No wheezes or rhonchi. No intercostal retractions. HEART: Regular rate and rhythm. No murmur. ABDOMEN: Soft. Bowel sounds are present. No masses. No tenderness. EXTREMITIES: No pedal edema. No calf tenderness. NEUROLOGICAL: Patient is awake, alert and oriented x3. Cranial nerves 2 through 12 are grossly intact. Please refer to medication reconciliation sheet for a list of medications. The impression and plan of care has been dictated by Karon Bauer, Nurse Practitioner as directed. Dr. Benja MD I have performed a history and examination and MDM of this patient, discussed the same with the dictator, and agree with the dictator's assessment and plan as written ,documented as a scribe. Based on total visit time, I have performed more than 50% of the visit. Patient Condition at Discharge: Fair Plan - Discharge Summary Discharge Rx Participant: Yes New Discharge Prescriptions: New Nitroglycerin Sl Tabs [Nitrostat] 0.4 mg SUBLINGUAL Q5M PRN #30 tab PRN Reason: Chest Pain Continue Mirtazapine [Remeron] 15 - 30 mg PO HS Mag Hydrox/Aluminum Hyd/Simeth [Mylanta Maximum Strength Liq] 30 ml PO Q4H PRN PRN Reason: Gi Upset Ibuprofen [Motrin Ib] 600 mg PO Q6H PRN PRN Reason: Fever And/ Or Pain Calcium/Mag/Zinc/June D 1 tab PO TID PRN PRN Reason: SUPPLEMENT Empagliflozin [Jardiance] 10 mg PO DAILY sitaGLIPtin [Januvia] 50 mg PO HS amLODIPine [Norvasc] 10 mg PO DAILY Citalopram Hydrobromide [CeleXA] 10 mg PO DAILY ARIPiprazole [Abilify] 15 mg PO DAILY Acetaminophen [Tylenol 8 Hour] 650 mg PO Q4H PRN PRN Reason: Fever And/ Or Pain Insulin Glargine,Hum.rec.anlog [Lantus Solostar Pen] 45 units SQ HS Insulin Glargine,Hum.rec.anlog [Lantus Solostar Pen] 35 units SQ DAILY Insulin Lispro 1 - 8 units SQ TID-W/MEALS No Action Insulin Glargine,Hum.rec.anlog [Lantus Solostar Pen] 30 unit SQ DAILY INSULIN LISPRO (HumaLOG) [humaLOG] 8 units SQ AC-TID Aspirin 81 mg PO DAILY Lidocaine 4% Patch 1 patch TOPICAL DAILY ALPRAZolam [Xanax] 0.5 mg PO TID ARIPiprazole [Abilify] 15 mg PO DAILY Empagliflozin [Jardiance] 10 mg PO DAILY Gabapentin 600 mg PO TID HYDROcodone/APAP 7.5-325MG [[place] 7.5-325] 1 tab PO DAILY sitaGLIPtin [Januvia] 50 mg PO DAILY Insulin Glargine,Hum.rec.anlog [Lantus Solostar Pen] 40 unit SQ HS amLODIPine [Norvasc] 10 mg PO DAILY Ammonium Lactate Cream [Lac-Hydrin 12% Cream] 1 applic TOPICAL DAILY Citalopram Hydrobromide [CeleXA] 10 mg PO DAILY Isosorbide Mononitrate ER [Imdur] 30 mg PO DAILY traZODone HCL 300 mg PO HS Cyclobenzaprine HCl 10 mg PO HS PRN #20 tab PRN Reason: Spasms Discharge Medication List Aspirin 81 mg PO DAILY 05/17/21 [History] INSULIN LISPRO (HumaLOG) [humaLOG] 8 units SQ AC-TID 05/17/21 [History] Insulin Glargine,Hum.rec.anlog [Lantus Solostar Pen] 30 unit SQ DAILY 05/17/21 [History] Insulin Glargine,Hum.rec.anlog [Lantus Solostar Pen] 40 unit SQ HS 05/17/21 [History] ALPRAZolam [Xanax] 0.5 mg PO TID 06/04/22 [History] ARIPiprazole [Abilify] 15 mg PO DAILY 06/04/22 [History] Ammonium Lactate Cream [Lac-Hydrin 12% Cream] 1 applic TOPICAL DAILY 06/04/22 [History] Citalopram Hydrobromide [CeleXA] 10 mg PO DAILY 06/04/22 [History] Empagliflozin [Jardiance] 10 mg PO DAILY 06/04/22 [History] Gabapentin 600 mg PO TID 06/04/22 [History] HYDROcodone/APAP 7.5-325MG [[place] 7.5-325] 1 tab PO DAILY 06/04/22 [History] Isosorbide Mononitrate ER [Imdur] 30 mg PO DAILY 06/04/22 [History] Lidocaine 4% Patch 1 patch TOPICAL DAILY 06/04/22 [History] amLODIPine [Norvasc] 10 mg PO DAILY 06/04/22 [History] sitaGLIPtin [Januvia] 50 mg PO DAILY 06/04/22 [History] traZODone HCL 300 mg PO HS 06/04/22 [History] Cyclobenzaprine HCl 10 mg PO HS PRN #20 tab 09/11/22 [Rx] ARIPiprazole [Abilify] 15 mg PO DAILY 01/12/23 [History] Acetaminophen [Tylenol 8 Hour] 650 mg PO Q4H PRN 01/12/23 [History] Calcium/Mag/Zinc/June D 1 tab PO TID PRN 01/12/23 [History] Citalopram Hydrobromide [CeleXA] 10 mg PO DAILY 01/12/23 [History] Empagliflozin [Jardiance] 10 mg PO DAILY 01/12/23 [History] Ibuprofen [Motrin Ib] 600 mg PO Q6H PRN 01/12/23 [History] Insulin Glargine,Hum.rec.anlog [Lantus Solostar Pen] 35 units SQ DAILY 01/12/23 [History] Insulin Glargine,Hum.rec.anlog [Lantus Solostar Pen] 45 units SQ HS 01/12/23 [History] Insulin Lispro 1 - 8 units SQ TID-W/MEALS 01/12/23 [History] Mag Hydrox/Aluminum Hyd/Simeth [Mylanta Maximum Strength Liq] 30 ml PO Q4H PRN 01/12/23 [History] Mirtazapine [Remeron] 15 - 30 mg PO HS 01/12/23 [History] amLODIPine [Norvasc] 10 mg PO DAILY 01/12/23 [History] sitaGLIPtin [Januvia] 50 mg PO HS 01/12/23 [History] Nitroglycerin Sl Tabs [Nitrostat] 0.4 mg SUBLINGUAL Q5M PRN #30 tab 01/13/23 [Rx] Follow up Appointment(s)/Referral(s): Nonstaff,Physician [Primary Care Provider] - 1-2 days Patient Instructions/Handouts: Chest Pain (DC) Activity/Diet/Wound Care/Special Instructions: If patient chooses to return to [facility], at discharge, please call them [phone] to arrange transportation return to them Activity Limited until follow-up Follow-up with primary care provider on discharge Follow-up cardiology outpatient Discharge Disposition: HOME SELF-CARE
== END 2023-01-13 15:28 | disposition home or self-care (01) ==
LOC: EC 09:29 → MERGE 10:37 → EEVIPCON 10:37 → 6NMEDSUR 10:37 → 3MHU 14:12 → 6NMEDSUR 14:12
PROVIDERS: ADMIT Hospitalist; ATTEND Hospitalist
DX: R07.89 Other chest pain (principal); E11.40 Type 2 diabetes mellitus with diabetic neuropathy, unspecified; E11.65 Type 2 diabetes mellitus with hyperglycemia; I10 Essential (primary) hypertension; E78.5 Hyperlipidemia, unspecified; M19.90 Unspecified osteoarthritis, unspecified site; F14.10 Cocaine abuse, uncomplicated; F10.10 Alcohol abuse, uncomplicated; F17.200 Nicotine dependence, unspecified, uncomplicated; Z79.84 Long term (current) use of oral hypoglycemic drugs; Z79.899 Other long term (current) drug therapy; Z79.4 Long term (current) use of insulin
CPT/HCPCS: 96372 ×2; 99285; 36415; 94760; 93005; 93306; 93351; 80061; 80053; 80048; 83735; 84484; 85025; 85610; 85730; 83036; 71046; G0378 ×2